=== PATIENT | female | born 1940 | race Asian ===

== ENCOUNTER 2016-07-06 10:26 | Outpatient (CLI) | payer MEDICARE | END 2016-07-06 10:27 | disposition home or self-care (01) | DX: Z12.31 Encounter for screening mammogram for malignant neoplasm of breast (principal) ==

== ENCOUNTER 2016-08-26 17:29 | Emergency (ER) | payer MEDICARE | END 2016-08-26 18:59 | disposition home or self-care (01) | DX: J06.9 Acute upper respiratory infection, unspecified (principal); I10 Essential (primary) hypertension; E11.9 Type 2 diabetes mellitus without complications; Z79.84 Long term (current) use of oral hypoglycemic drugs ==

== ENCOUNTER 2016-10-23 10:13 | Outpatient (CLI) | payer MEDICARE | END 2016-10-23 10:14 | disposition home or self-care (01) | DX: M85.89 Other specified disorders of bone density and structure, multiple sites (principal) ==

== ENCOUNTER 2016-12-29 11:54 | Emergency (ER) | payer MEDICARE ==
[2016-12-29 12:00] VITALS: BP 156/83
[2016-12-29 12:20] LABS: BILIRUBIN,URINE NEGATIVE (NEGATIVE); PH,URINE 6.5 PH (5.0-7.5)
[2016-12-29 12:23] LABS: UA w/ MICROSCOPIC CHARGE YES
[2016-12-29] MEDS ORDERED: PHENAZOPYRIDINE 100 MG TABLET PO STA (12:35)
[2016-12-29] MEDS ORDERED: NITROFURANTOIN MACRO 100 MG CAPSULE PO STA (12:35)
--- NOTE | 2016-12-29 12:37 | ED Physician Documentation ---
History of Present Illness - Stated complaint Stated Complaint: FEMALE - Chief complaint Chief Complaint: UTI - History obtained from History obtained from: Patient, Family () - History of Present Illness Timing: Yesterday (Urinary frequency and dysuria since yesterday without fevers , flank pain, or nausea.) Review of Systems Constitutional: denies: Fever, Chills GI: denies: Abdominal Pain, Nausea : reports: Dysuria, Frequency. 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: None : None HEENT: None Psych: None Musculoskeletal: None Derm: None - Past Surgical History Past Surgical History: Yes General: Appendectomy /COLOR CHECKER ROVING OR YARN: Hysterectomy - Present Medications Home Medications: Ambulatory Orders Medication Instructions Recorded Confirmed Atenolol [Tenormin] 50 mg PO DAILY 03/15/15 12/29/16 NIFEdipine [Procardia] 30 mg PO DAILY 03/15/15 12/29/16 Simvastatin [Zocor] 40 mg PO DAILY 03/15/15 12/29/16 metFORMIN [Glucophage] 500 mg PO TID 03/15/15 12/29/16 Nitrofurantoin Monohyd/M-Cryst 1 tab PO BID 5 Days 12/29/16 [Macrobid 100 mg Capsule] Phenazopyridine HCl [Pyridium] 200 mg PO TID #6 tablet 12/29/16 - Allergies Allergies/Adverse Reactions: Allergies Allergy/AdvReac Type Severity Reaction Status Date / Time aspirin AdvReac Intermediate Nausea Verified 10/28/15 16:40 lactose AdvReac Intermediate Nausea Verified 10/28/15 16:40 - Social History Does the pt smoke?: No Smoking Status: Never smoker Does the pt drink ETOH?: Yes Does the pt have substance abuse?: No - Immunizations Immunizations are current?: Yes - POLST Patient has POLST: No PD ED PE NORMAL - Vitals Vital signs reviewed: Yes - General General: Alert and oriented X 3, No acute distress - Abdomen Abdomen: Soft, Non tender - Back Back: No CVA TTP - Neuro Neuro: Alert and oriented X 3, Normal speech - Psych Psych: Normal mood, Normal affect Results - Vitals Vitals: Vital Signs - 24 hr 12/29/16 11:58 Temperature 36.7 C Heart Rate 69 Respiratory 16 Rate Blood Pressure 156/83 H O2 Saturation 96 Oxygen O2 Source Room air - Labs Labs: Laboratory Tests 12/29/16 12:07 Urine Color YELLOW Urine Clarity HAZY Urine pH 6.5 Ur Specific [place] 1.010 Urine Protein NEGATIVE Urine Glucose (UA) 250 H Urine Ketones NEGATIVE Urine Occult Blood MODERATE H Urine Nitrite NEGATIVE Urine Bilirubin NEGATIVE Urine Urobilinogen 0.2 (NORMAL) Ur Leukocyte Esterase MODERATE H Ur Microscopic Review INDICATED Urine Culture Comments Not Reportable Departure - Departure Disposition: Home, Self Care Clinical Impression: Cystitis Condition: Good Record reviewed to determine appropriate education?: Yes Instructions: ED UTI Cystitis Female Prescriptions: Nitrofurantoin Monohyd/M-Cryst [Macrobid 100 mg Capsule] 1 tab PO BID 5 Days Phenazopyridine HCl [Pyridium] 200 mg PO TID #6 tablet Comments: We will culture your urine, the results should be done in 48-72 hours. If an antibiotic change is necessary we will call you. Return if worse in the meantime, especially if you develop increasing flank pain, fevers, or cannot keep down the medication. Your blood pressure was elevated today on check into the emergency department. This does not mean that you have hypertension, it is a common phenomenon to come to the emergency department and have elevated blood pressure. I recommend that she see her primary care physician within the week to have it rechecked when you are feeling better.
[2016-12-29] MEDS ORDERED: NITROFURANTOIN MACRO 100 MG CAPSULE PO ONE (12:38)
[2016-12-29] MEDS ORDERED: PHENAZOPYRIDINE 100 MG TABLET PO ONE (12:38)
[2016-12-29 12:50] LABS: UR CULTURE IF IND INDICATED; WBC,URINE >25 /HPF (0-5)
== END 2016-12-29 12:54 | disposition home or self-care (01) ==
LOC: ED 11:54
DX: N30.90 Cystitis, unspecified without hematuria (principal); I10 Essential (primary) hypertension; E11.9 Type 2 diabetes mellitus without complications; Z79.84 Long term (current) use of oral hypoglycemic drugs; Z90.710 Acquired absence of both cervix and uterus
CPT/HCPCS: 81001; 87077; 87086; 87181; 99283; A9270; 81003

== ENCOUNTER 2017-01-28 11:49 | Outpatient (CLI) | payer MEDICARE ==
--- NOTE | 2017-01-28 13:46 | XRAY Report ---
TWO-VIEW LUMBAR SPINE: 01/28/2017 CLINICAL INDICATION: Back pain. FINDINGS: Frontal and lateral views of the lumbar spine demonstrate mild degenerative disc and facet disease. There is no evidence of fracture or subluxation. The bowel gas pattern appears normal. IMPRESSION: MILD DEGENERATIVE CHANGES. JOB #: [id number] EXT JOB #:[id number]
== END 2017-01-28 11:50 | disposition home or self-care (01) ==
LOC: DI 11:49
PROVIDERS: ATTEND Internal Medicine
DX: M51.36 Other intervertebral disc degeneration, lumbar region (principal); M47.896 Other spondylosis, lumbar region
CPT/HCPCS: 72100

== ENCOUNTER 2017-06-10 12:28 | Outpatient (CLI) | payer MEDICARE ==
--- NOTE | 2017-06-10 15:01 | CT Report ---
EXAM: CT HEAD EXAM DATE: 06/10/2017 12:47 PM. CLINICAL HISTORY: HEADACHE. COMPARISON: None. TECHNIQUE: Multiaxial CT images were obtained from the foramen magnum to the vertex. Reformats: Coron al. IV contrast: None. In accordance with CT protocol optimization, one or more of the following dose reduction techniques w ere utilized for this exam: automated exposure control, adjustment of mA and/or KV based on patient s ize, or use of iterative reconstructive technique. FINDINGS: Parenchyma: No intraparenchymal hemorrhage. No evidence of mass, midline shift, or CT findings of acu te infarction. Old bilateral basal ganglia infarcts. Old bilateral ayala radiata Rodriguez-white differen tiation is distinct. Moderate supratentorial periventricular white matter changes Extraaxial Spaces: Normal for age. No subdural or epidural collections identified. Ventricles: Normal in size and position. Sinuses and Orbits: Imaged paranasal sinuses, orbits, and mastoids show no significant abnormality. Bones: No evidence of fracture or calvarial defect. Other: None. IMPRESSION: 1. No acute bleed, no acute infarcts. 2. Old bilateral basal ganglia, ayala radiata infarcts. 3. Moderate supratentorial periventricular white matter changes [facility] Referring Provider Line: [phone] SITE ID: [id number]
--- NOTE | 2017-06-10 15:06 | CT Report ---
EXAM: CT SINUS EXAM DATE: 06/10/2017 12:47 PM. HISTORY: Headache COMPARISONS: None. TECHNIQUE: Routine multi-axial CT imaging performed through the sinuses. Iodinated IV contrast: None. Reconstructions: Coronal. In accordance with CT protocol optimization, one or more of the following dose reduction techniques w ere utilized for this exam: automated exposure control, adjustment of mA and/or KV based on patient s ize, or use of iterative reconstructive technique. FINDINGS: RIGHT: Postop partial ethmoidectomy, ostiomeatal unit resection, maxillary antrostomy. Frontal: Normal. Ethmoid: Mild mucosal thickening Maxillary: Mild mucosal thickening 0.9 cm retention cysts/polyp. Antrostomy patent Sphenoid: Normal. Drainage Pathways: The frontal recess and sphenoethmoidal recess are patent and normal. LEFT: Postop partial ethmoidectomy, ostiomeatal unit resection, maxillary antrostomy. Frontal: Mild mucosal thickening. Ethmoid: Mild mucosal thickening. Maxillary: Mild mucosal thickening. Antrostomy patent. Sphenoid: Normal. Drainage Pathways: The frontal recess opacified. Sphenoethmoidal recess patent and normal. Nasal Cavity: Normal. No mass or significant anatomic abnormality evident. Osseous Structures: Unremarkable. Orbits: Unremarkable. Other: None. IMPRESSION: 1. Mild Bilateral ethmoid and maxillary sinus disease. Mild Left frontal sinus disease. Detailed abov e [facility] Referring Provider Line: [phone] SITE ID: [id number]
== END 2017-06-10 12:29 | disposition home or self-care (01) ==
LOC: DI 12:28
PROVIDERS: ATTEND Internal Medicine
DX: R51 Headache (principal); J32.8 Other chronic sinusitis
CPT/HCPCS: 70450; 70486

== ENCOUNTER 2017-07-24 11:39 | Outpatient (CLI) | payer MEDICARE ==
--- NOTE | 2017-07-26 09:41 | Mammography Report ---
DATE OF SERVICE: 07/24/2017 DIGITAL SCREENING MAMMOGRAM: 07/24/2017 CLINICAL INDICATION: A 76-year-old, for screening. COMPARISON: 07/2016, 05/2011, 05/2008. TECHNIQUE: Routine CC and MLO projections were obtained of the breasts. FINDINGS: The breasts demonstrate fatty replacement bilaterally. Punctate, typically benign calcifications are present. No suspicious masses, clustered microcalcifications or regions of architectural distortion are identified. IMPRESSION: BENIGN FINDINGS. RECOMMENDATION: ROUTINE ANNUAL SCREENING UNLESS OTHERWISE CLINICALLY INDICATED. BIRADS CATEGORY 2-BENIGN FINDINGS. STANDARD QUALIFYING STATEMENTS: 1. This examination was reviewed with the aid of Computer-Aided Detection (CAD). 2. A negative or benign imaging report should not delay biopsy if clinically suspicious findings are present. Consider surgical consultation if warranted. More than 5% of cancers are not identified by imaging. 3. Dense breasts may obscure an underlying neoplasm. TD: 07/26/2017 10:39
== END 2017-07-24 11:40 | disposition home or self-care (01) ==
LOC: DI 11:39
PROVIDERS: ATTEND Internal Medicine
DX: Z12.31 Encounter for screening mammogram for malignant neoplasm of breast (principal)
CPT/HCPCS: 77067

== ENCOUNTER 2018-03-23 11:01 | Emergency (ER) | payer MEDICARE ==
[2018-03-23 11:50] LABS: BILIRUBIN,URINE NEGATIVE (NEGATIVE); GLUCOSE, URINE (UA) 500 mg/dL (NEGATIVE); KETONES,URINE (UA) NEGATIVE (NEGATIVE); LEUKOCYTE ESTERASE, URINE SMALL (NEGATIVE); NITRITE,URINE NEGATIVE (NEGATIVE); OCCULT BLOOD,URINE NEGATIVE (NEGATIVE); PROTEIN,URINE NEGATIVE (NEGATIVE); UROBILINOGEN,URINE 0.2 (NORMAL) E.U./dL (NORMAL)
[2018-03-23 11:51] LABS: CLARITY,URINE HAZY (CLEAR)
[2018-03-23 11:58] LABS: BACTERIA,URINE Rare /HPF (None Seen); RBC,URINE 0-5 /HPF (0-5); SQUAMOUS EPITHELIAL CELL,UR RARE Squamous (<= Few)
--- NOTE | 2018-03-23 12:35 | ED Physician Documentation ---
History of Present Illness - Stated complaint Stated Complaint: COUGH/RUNNY NOSE - Chief complaint Chief Complaint: Heent - Additonal information Additional information: hx from pt recent cough congestion now L maxillary pressure and purulent dc from eyes and nose concern for sinus infection Review of Systems Constitutional: denies: Fever Nose: reports: Congestion, Sinus pressure / pain Respiratory: reports: Cough Immunocompromised: denies: Immunocompromised PD PAST MEDICAL HISTORY - Past Medical History Past Medical History: Yes Cardiovascular: Hypertension Respiratory: None Endocrine/Autoimmune: Type 2 diabetes GI: None 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 : None HEENT: None Psych: None Musculoskeletal: None Derm: None - Past Surgical History Past Surgical History: Yes General: 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: Hysterectomy - Present Medications Home Medications: Ambulatory Orders Medication Instructions Recorded Confirmed Atenolol [Tenormin] 50 mg PO DAILY 03/15/15 03/23/18 NIFEdipine [Procardia] 30 mg PO DAILY 03/15/15 03/23/18 Simvastatin [Zocor] 40 mg PO DAILY 03/15/15 03/23/18 metFORMIN [Glucophage] 500 mg PO TID 03/15/15 03/23/18 Amox/Clav 875/125 [Augmentin] 1 each PO Q12H #14 tablet 03/23/18 Fluticasone [Flonase] 1 sprays HALEY BID PRN #1 bottle 03/23/18 Pseudoephedrine [Sudafed] 30 mg PO Q6H PRN #20 tablet 03/23/18 - Allergies Allergies/Adverse Reactions: Allergies Allergy/AdvReac Type Severity Reaction Status Date / Time aspirin AdvReac Intermediate Nausea Verified 10/28/15 16:40 lactose AdvReac Intermediate Nausea Verified 10/28/15 16:40 - Social History Does the pt smoke?: No Smoking Status: Never smoker Does the pt drink ETOH?: Yes Does the pt have substance abuse?: No - Immunizations Immunizations are current?: Yes - POLST Patient has POLST: No PD ED PE NORMAL - Vitals Vital signs reviewed: Yes - HEENT HEENT: PERRL, Pharynx benign, Other (L maxillary sinus TTP and swelling, nasal turbinate swelling) - Neck Neck: Supple, no meningeal sign - Cardiac Cardiac: RRR - Respiratory Respiratory: No respiratory distress - Abdomen Abdomen: Soft, Non tender Results - Vitals Vitals: Vital Signs - 24 hr 03/23/18 11:16 Temperature 36.5 C Heart Rate 78 Respiratory 18 Rate Blood Pressure 195/74 H O2 Saturation 97 Oxygen O2 Source Room air - Labs Labs: Laboratory Tests 03/23/18 11:42 Urine Color YELLOW Urine Clarity HAZY Urine pH 6.0 Ur Specific [place] 1.015 Urine Protein NEGATIVE Urine Glucose (UA) 500 H Urine Ketones NEGATIVE Urine Occult Blood NEGATIVE Urine Nitrite NEGATIVE Urine Bilirubin NEGATIVE Urine Urobilinogen 0.2 (NORMAL) Ur Leukocyte Esterase SMALL H Urine RBC 0-5 Urine WBC 11-25 H Ur Squamous Epith Cells RARE Squamous Urine Bacteria Rare Ur Microscopic Review INDICATED Urine Culture Comments INDICATED PD MEDICAL DECISION MAKING - ED course ED course: given focal maxillary swelling and purlent dc will tx with ab - Sepsis Event Vital Signs: Vital Signs - 24 hr 03/23/18 11:16 Temperature 36.5 C Heart Rate 78 Respiratory 18 Rate Blood Pressure 195/74 H O2 Saturation 97 Oxygen O2 Source Room air Departure - Departure Disposition: 01 Home, Self Care Clinical Impression: Maxillary sinusitis Qualifiers: Chronicity: acute Recurrence: non-recurrent Qualified Code(s): J01.00 - Acute maxillary sinusitis, unspecified Condition: Good Instructions: ED Sinusitis Abx Tx Follow-Up: Vania Gómez MD [Primary Care Provider] - Prescriptions: Amox/Clav 875/125 [Augmentin] 1 each PO Q12H #14 tablet Fluticasone [Flonase] 1 sprays HALEY BID PRN #1 bottle PRN Reason: allergies Pseudoephedrine [Sudafed] 30 mg PO Q6H PRN #20 tablet PRN Reason: congestion Comments: Recommend that you try a sinus irrigation system as well And please get your blood pressure rechecked
[2018-03-23 13:02] VITALS: BP 195/82
== END 2018-03-23 12:57 | disposition home or self-care (01) ==
LOC: ED 11:01
DX: I10 Essential (primary) hypertension (principal); E11.9 Type 2 diabetes mellitus without complications; J01.00 Acute maxillary sinusitis, unspecified
CPT/HCPCS: 81001; 81003; 87086; 99282; 99283

== ENCOUNTER 2018-11-03 11:37 | Emergency (ER) | payer MEDICARE ==
[2018-11-03] MEDS ORDERED: ACETAMINOPHEN/CODEINE 300 MG/30 MG TABLET PO STA (11:58)
--- NOTE | 2018-11-03 11:58 | ED Physician Documentation ---
PD HPI UPPER EXT INJURY - Stated complaint Stated Complaint: GLF/R ARM INJ - Chief complaint Chief Complaint: Ext Problem - History obtained from History obtained from: Patient - History of Present Illness Location: Left, Wrist Type of injury: Fall Where injury occurred: Home Timing - onset: How many hours ago (2) Timing - duration: Hours (2) Timing - details: Abrupt onset Pain level max: 7 Pain level now: 7 Improved by: Rest, Immobilization Worsened by: Moving, Palpating Associated symptoms: No: Weakness, Numbness, Tingling Contributing factors: No: Anticoagulated Recently seen: Not recently seen Review of Systems Neurologic: denies: Focal weakness, Numbness, Headache, LOC PD PAST MEDICAL HISTORY - Past Medical History Cardiovascular: Hypertension Respiratory: None Endocrine/Autoimmune: Type 2 diabetes GI: None CADET 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 : None HEENT: None Psych: None Musculoskeletal: None Derm: None - Past Surgical History Past Surgical History: Yes General: Appendectomy /CADET DECK: Hysterectomy - Present Medications Home Medications: Ambulatory Orders Medication Instructions Recorded Confirmed Atenolol [Tenormin] 50 mg PO DAILY 03/15/15 03/23/18 NIFEdipine [Procardia] 30 mg PO DAILY 03/15/15 03/23/18 Simvastatin [Zocor] 40 mg PO DAILY 03/15/15 03/23/18 metFORMIN [Glucophage] 500 mg PO TID 03/15/15 03/23/18 Amox/Clav 875/125 [Augmentin] 1 each PO Q12H #14 tablet 03/23/18 Fluticasone [Flonase] 1 sprays HALEY BID PRN #1 bottle 03/23/18 Pseudoephedrine [Sudafed] 30 mg PO Q6H PRN #20 tablet 03/23/18 Acetaminophen/Cod 300/30 [Tylenol 1 tab PO Q4-6H PRN #14 tablet 11/03/18 #3] - Allergies Allergies/Adverse Reactions: Allergies Allergy/AdvReac Type Severity Reaction Status Date / Time aspirin AdvReac Intermediate Nausea Verified 11/03/18 11:43 lactose AdvReac Intermediate Nausea Verified 11/03/18 11:43 - Social History Does the pt smoke?: No Smoking Status: Never smoker Does the pt drink ETOH?: Yes Does the pt have substance abuse?: No - Immunizations Immunizations are current?: Yes - POLST Patient has POLST: No PD ED PE NORMAL - Vitals Vital signs reviewed: Yes - General General: Alert and oriented X 3, No acute distress - HEENT HEENT: Moist mucous membranes - Derm Derm: Warm and dry - Extremities Extremities: Other (R wrist diffusely TTP over the distal R wrist with swelling. NVI.) - Neuro Neuro: Alert and oriented X 3 Results - Vitals Vitals: Vital Signs - 24 hr 11/03/18 11/03/18 11:41 12:58 Temperature 36.9 C 36.3 C L Heart Rate 65 56 L Respiratory 14 16 Rate Blood Pressure 185/79 H 163/74 H O2 Saturation 98 96 Oxygen O2 Source Room air - Rads (name of study) R wrist xray Radiology: Prelim report reviewed, EMP read contemporaneously, See rad report (Impacted distal radial fracture. ) Procedures - Splint (location) R wrist Splint applied by: Physician, Tech Type of splint: Fiberglass, Short arm, Volar cock up Other: Patient tolerated well, No complications, Neurovascular intact, Sling provided PD MEDICAL DECISION MAKING - ED course Complexity details: reviewed results, re-evaluated patient, considered differential, d/w patient, d/w family ED course: 78-year-old female with an impacted right distal radius fracture. Placed in a volar splint and sling. Will follow up with orthopedics. Patient counseled regarding signs and symptoms for which I believe and urgent re-evaluation would be necessary. Patient with good understanding of and agreement to plan and is comfortable going home at this time This document was made in part using voice recognition software. While efforts are made to proofread this document, sound alike and grammatical errors may occur. Neurovascularly intact after sling application Departure - Departure Disposition: 01 Home, Self Care Clinical Impression: Distal radius fracture, right Qualifiers: Encounter type: initial encounter Fracture type: closed Fracture morphology: unspecified fracture morphology Qualified Code(s): S52.501A - Unspecified fracture of the lower end of right radius, initial encounter for closed fracture Condition: Good Instructions: ED Fx Upper Ext Follow-Up: Vania Gómez MD [Primary Care Provider] - Within 1 week [facility] [Provider Group] - Within 1 week Prescriptions: Acetaminophen/Cod 300/30 [Tylenol #3] 1 tab PO Q4-6H PRN #14 tablet PRN Reason: pain Comments: Wear the splint until released by orthopedics. Follow-up with orthopedics within 1 week. Return if you worsen. Discharge Date/Time: 11/03/18 13:00
--- NOTE | 2018-11-03 12:22 | XRAY Report ---
Reason: Trauma Procedure Date: 11/03/2018 Accession Number: [id number] / [id number] Procedure: XR - Wrist 4 View RT CPT Code: FULL RESULT: EXAM: RIGHT WRIST RADIOGRAPHY EXAM DATE: 11/03/2018 12:08 PM. CLINICAL HISTORY: Fall onto the side. COMPARISON: None. TECHNIQUE: 4 views. FINDINGS: There is an impacted distal radius fracture without significant angulation. Micro-osteopenic. No dislocation is detected. IMPRESSION: Impacted distal radial fracture. [facility] The call report notification system was initiated by Dr. Mayo Morgan at 12:21 PM on 11/03/2018. The above call report findings were discussed with Dr. Hernandez by Dr. Mayo Mogran at 12:23 PM on 11/03/2018.
[2018-11-03 12:59] VITALS: BP 163/74
== END 2018-11-03 13:00 | disposition home or self-care (01) ==
LOC: ED 11:37
DX: S52.501A Unspecified fracture of the lower end of right radius, initial encounter for closed fracture (principal); W01.0XXA Fall on same level from slipping, tripping and stumbling without subsequent striking against object, initial encounter; Y92.009 Unspecified place in unspecified non-institutional (private) residence as the place of occurrence of the external cause; I10 Essential (primary) hypertension; E11.9 Type 2 diabetes mellitus without complications; Z79.84 Long term (current) use of oral hypoglycemic drugs
CPT/HCPCS: 29125; 73110; 99283; A9270

== ENCOUNTER 2019-08-14 06:58 | Outpatient (CLI) | payer MEDICARE | END 2019-08-14 06:59 | disposition critical access hospital (66) | LOC: EMS 06:58 | PROVIDERS: ATTEND Surgery | DX: R29.810 Facial weakness (principal); R53.1 Weakness; R47.9 Unspecified speech disturbances | CPT/HCPCS: A0425; A0429 ==

== ENCOUNTER 2019-08-14 07:10 | Inpatient (IN) | payer MEDICARE ==
--- NOTE | 2019-08-14 07:21 | ED Physician Documentation ---
PD HPI FOCAL NEURO - Stated complaint Stated Complaint: STROKE - Chief complaint Chief Complaint: Neuro - History obtained from History obtained from: Patient, Family - History of Present Illness Weakness: Face, Arm, Hand, Leg, Foot, Right Associated symptoms: No: Nausea / vomiting Contributing factors: negative: Anticoagulated Baseline status: positive: A&OX3, ambulatory, indep Similar symptoms before: Has not had sx before Recently seen: Not recently seen - Additional information Additional information: 79-year-old female brought in by ambulance this morning for a aphasia, right- sided facial droop, right arm and right leg weakness. They state that last seen normal was last night. did state that he heard her moving around this morning approximately an hour ago. They were called when he went to check on her and found her unable to speak and without the use of her right arm and right leg. They state that this is never occurred before. Does have significant hypertension in her history. She is on 4 antihypertensive medications. Unknown if she took them this morning or not as she is not speaking currently. The medics state that her weakness appears to be improving fairly rapidly while en route to the hospital. 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 : None HEENT: None Psych: None Musculoskeletal: None Derm: None - Past Surgical History Past Surgical History: Yes General: Appendectomy /HORTICULTURE INSTRUCTOR: Hysterectomy - Present Medications Home Medications: Ambulatory Orders Medication Instructions Recorded Confirmed Atenolol [Tenormin] 50 mg PO DAILY 03/15/15 03/23/18 NIFEdipine [Procardia] 30 mg PO DAILY 03/15/15 03/23/18 Simvastatin [Zocor] 40 mg PO DAILY 03/15/15 03/23/18 metFORMIN [Glucophage] 500 mg PO TID 03/15/15 03/23/18 Amox/Clav 875/125 [Augmentin] 1 each PO Q12H #14 tablet 03/23/18 Fluticasone [Flonase] 1 sprays HALEY BID PRN #1 bottle 03/23/18 Pseudoephedrine [Sudafed] 30 mg PO Q6H PRN #20 tablet 03/23/18 Acetaminophen/Cod 300/30 [Tylenol 1 tab PO Q4-6H PRN #14 tablet 11/03/18 #3] - Allergies Allergies/Adverse Reactions: Allergies Allergy/AdvReac Type Severity Reaction Status Date / Time aspirin AdvReac Intermediate Nausea Verified 11/03/18 11:43 lactose AdvReac Intermediate Nausea Verified 11/03/18 11:43 - Living Situation Living Situation: reports: With family Living Arrangement: reports: At home - Social History Does the pt smoke?: No Smoking Status: Never smoker Does the pt drink ETOH?: Yes Does the pt have substance abuse?: No - Family History Family history: reports: Non contributory - Immunizations Immunizations are current?: Yes - POLST Patient has POLST: No PD ED PE NORMAL - Vitals Vital signs reviewed: Yes - General General: No acute distress, Well developed/nourished - HEENT HEENT: Atraumatic, PERRL, EOMI, Ears normal, Moist mucous membranes, Pharynx benign - Neck Neck: Supple, no meningeal sign - Cardiac Cardiac: RRR, Strong equal pulses - Respiratory Respiratory: No respiratory distress, Clear bilaterally - Abdomen Abdomen: Soft, Non tender, Non distended - Derm Derm: Warm and dry, No rash - Extremities Extremities: No edema - Neuro 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, No sensory deficit, Other (Difficulty speaking, Expressive aphasia) Eye Opening: Spontaneous NIHSS - Time Time: 07:17 - Level of Consciousness Level of consciousness: (0) Alert, Keenly responsive LOC Questions: (2) Answers neither correct LOC Commands: (0) Performs both correctly - Gaze Best Gaze: (0) Normal - Visual Visual: (0) No loss - Facial Palsy Facial Palsy: (1) Minor paralysis - Motor Arms (both separate) Motor Arm (right): (1) Drift Motor Arm (left): (0) No drift - Motor Legs (both separate) Motor Leg (right): (1) Drift Motor Leg (left): (0) No drift - Limb Ataxia Limb Ataxia: (0) Absent - Sensory Sensory: (0) Normal - Best Language Best Language: (2) Severe aphasia - Dysarthria Dysarthria: (0) Normal - Extinction and Inattention (formally neg Extinction and inattention: (0) No abnormality - Total Score/Results Total Score/Result: 7 Results - Vitals Vitals: Vital Signs - 24 hr 08/14/19 08/14/19 08/14/19 07:15 08:02 08:15 Temperature 36.9 C Heart Rate 76 81 Respiratory 16 18 20 Rate Blood Pressure 233/103 H 234/81 H 243/71 H O2 Saturation 96 95 08/14/19 08/14/19 08:24 08:31 Temperature Heart Rate 68 71 Respiratory 18 18 Rate Blood Pressure 216/74 H 221/79 H O2 Saturation 96 96 Oxygen O2 Source Room air - EKG (time done) 0730 Rate: Rate (enter#) (82) Rhythm: NSR Magnet: Normal Intervals: Normal ND, Prolonged QT QRS: Normal, LVH Ischemia: ST elevation c/w repol - Labs Labs: Laboratory Tests 08/14/19 08/14/19 08/14/19 07:35 07:35 07:35 WBC 7.4 RBC 4.83 Hgb 14.5 Hct 44.3 MCV 91.7 MCH 30.0 MCHC 32.7 RDW 12.5 Plt Count 159 MPV 10.2 Neut # (Auto) 4.2 Lymph # (Auto) 2.5 [place] # (Auto) 0.6 Eos # (Auto) 0.2 Baso # (Auto) 0.0 Absolute Nucleated RBC 0.00 Nucleated RBC % 0.0 PT 11.9 INR 1.0 APTT 31.5 Sodium 137 Potassium 3.9 Chloride 102 Carbon Dioxide 24 Anion Gap 11.0 BUN 17 Creatinine 1.1 H Estimated GFR (MDRD) 48 L Glucose 160 H Calcium 9.2 Total Bilirubin 0.8 AST 24 ALT 20 Alkaline Phosphatase 60 Total Protein 7.3 Albumin 4.3 Globulin 3.0 Albumin/Globulin Ratio 1.4 Lipase 37 Urine Color Urine Clarity Urine pH Ur Specific [place] Urine Protein Urine Glucose (UA) Urine Ketones Urine Occult Blood Urine Nitrite Urine Bilirubin Urine Urobilinogen Ur Leukocyte Esterase Urine RBC Urine WBC Ur Squamous Epith Cells Urine Bacteria Ur Microscopic Review Urine Culture Comments 08/14/19 08:00 WBC RBC Hgb Hct MCV MCH MCHC RDW Plt Count MPV Neut # (Auto) Lymph # (Auto) [place] # (Auto) Eos # (Auto) Baso # (Auto) Absolute Nucleated RBC Nucleated RBC % PT INR APTT Sodium Potassium Chloride Carbon Dioxide Anion Gap BUN Creatinine Estimated GFR (MDRD) Glucose Calcium Total Bilirubin AST ALT Alkaline Phosphatase Total Protein Albumin Globulin Albumin/Globulin Ratio Lipase Urine Color LIGHT YELLOW Urine Clarity CLEAR Urine pH 7.5 Ur Specific [place] 1.020 Urine Protein 30 H Urine Glucose (UA) NEGATIVE Urine Ketones NEGATIVE Urine Occult Blood NEGATIVE Urine Nitrite NEGATIVE Urine Bilirubin NEGATIVE Urine Urobilinogen 0.2 (NORMAL) Ur Leukocyte Esterase NEGATIVE Urine RBC 0-5 Urine WBC 0-3 Ur Squamous Epith Cells FEW Squamous Urine Bacteria Rare Ur Microscopic Review INDICATED Urine Culture Comments NOT INDICATED - Rads (name of study) head CT Radiology: Prelim report reviewed, EMP read contemporaneously, See rad report (No acute intracranial abnormality) PD MEDICAL DECISION MAKING - ED course Complexity details: reviewed results, re-evaluated patient, considered differential, d/w patient, d/w family, d/w product/industry consultant ED course: 79-year-old female with significant hypertension and diabetes. She is on 5 antihypertensive medications at home. Unclear if she took these today or not. Was treated with labetalol here after negative head CT. Her weakness is rapidly improving, initially was completely a phasic, now will say yes or no. She was also given rectal aspirin after the negative head CT. Concern for very poorly controlled blood pressure along with stroke symptoms, will need further work-up with the hospitalist. Discussed the case with Dr. Ortiz, hospitalist who accepts. She is not a TPA candidate. This document was made in part using voice recognition software. While efforts a re made to proofread this document, sound alike and grammatical errors may occur. - TPA CVA checklist Inclusion crititeria: positive: Sig neuro deficit Absolute contraindications: positive: SBP>185 DBP>110 s/p tx Relative contraindications: positive: Rapid improvement Absolute contraindications if 3-4.5 hr: positive: Age > 80 Departure - Departure Disposition: 66 [facility] DC/Xfer Clinical Impression: Hypertension Qualifiers: Hypertension type: unspecified Qualified Code(s): I10 - Essential (primary) hypertension Stroke Qualifiers: CVA mechanism: unspecified Qualified Code(s): I63.9 - Cerebral infarction, unspecified Condition: Stable
--- NOTE | 2019-08-14 07:39 | CT Report ---
Reason: Neuro deficit, acute, stroke suspected Procedure Date: 08/14/2019 Accession Number: [id number] / [id number] Procedure: CT - Head W/O Stroke Protocol CPT Code: Addended Final Report FULL RESULT: EXAM: CT HEAD EXAM DATE: 08/14/2019 07:28 AM. CLINICAL HISTORY: Neuro deficit, acute, stroke suspected. Acute aphasia and right extremity weakness. COMPARISON: HEAD W/O 06/10/2017 12:39 PM. TECHNIQUE: Multiaxial CT images were obtained from the foramen magnum to the vertex. Reformats: Sagittal and coronal. IV contrast: None. In accordance with CT protocol optimization, one or more of the following dose reduction techniques were utilized for this exam: automated exposure control, adjustment of mA and/or KV based on patient size, or use of iterative reconstructive technique. FINDINGS: Diffuse atrophy. Multiple old lacunar infarcts bilaterally. Amorphous white matter hypoattenuation likely from microangiopathy. No hydrocephalus, mass-effect or midline shift. No evidence for acute cortical infarct or acute hemorrhage. Cavernous carotid calcifications. Findings of prior sinus surgery. Residual paranasal sinus mucosal thickening. New prominent fluid opacity of the left sphenoid sinus. No acute calvarial defect. IMPRESSION: 1. No CT evidence of acute intracranial abnormality. 2. Brain atrophy and findings of chronic ischemic brain disease. 3. Sinusitis. RADIA The critical test notification system was initiated by Dr. Marck Dolan at 07:37 AM on 08/14/2019. The above critical test findings were discussed with Oswald Hernandez by Dr. Marck Dolan at 07:38 AM on 08/14/2019. ADDENDUM: 08/14/19 14:59 Aspects 10, which might be inferred from absence of CT findings of acute cortical infarct, as reported.
[2019-08-14 07:55] LABS: ALBUMIN 4.3 g/dL (3.2-5.5); ALBUMIN/GLOBULIN RATIO 1.4 (1.0-2.2); BILIRUBIN,TOTAL 0.8 mg/dL (0.2-1.0); CALCIUM 9.2 mg/dL (8.5-10.3); CREATININE 1.1 mg/dL (0.4-1.0); TOTAL PROTEIN 7.3 g/dL (6.7-8.2)
[2019-08-14] MEDS ORDERED: LABETALOL 5 MG/1 ML 20 ML MDV IVP STA ×2 (08:02→08:38)
[2019-08-14 08:10] LABS: BILIRUBIN,URINE NEGATIVE (NEGATIVE); GLUCOSE, URINE (UA) NEGATIVE (NEGATIVE); KETONES,URINE (UA) NEGATIVE (NEGATIVE); LEUKOCYTE ESTERASE, URINE NEGATIVE (NEGATIVE); NITRITE,URINE NEGATIVE (NEGATIVE); OCCULT BLOOD,URINE NEGATIVE (NEGATIVE); PH,URINE 7.5 PH (5.0-7.5); PROTEIN,URINE 30 mg/dL (NEGATIVE); UROBILINOGEN,URINE 0.2 (NORMAL) E.U./dL (NORMAL)
[2019-08-14 08:10] LABS: BASOPHILS % (AUTO) 0.3 %; EOSINOPHILS # (AUTO) 0.2 10^3/uL (0.0-0.7); HGB - HEMOGLOBIN 14.5 g/dL (12.0-16.0); LYMPHOCYTES # (AUTO) 2.5 10^3/uL (1.5-3.5); LYMPHOCYTES % (AUTO) 33.9 %; MEAN CORPUSCULAR HGB CONC 32.7 g/dL (32.0-36.0); MEAN CORPUSCULAR VOLUME 91.7 fL (81.0-99.0); MEAN PLATELET VOLUME 10.2 fL (7.9-10.8); MONOCYTES # (AUTO) 0.6 10^3/uL (0.0-1.0); MONOCYTES % (AUTO) 7.4 %; NEUTROPHILS # (AUTO) 4.2 10^3/uL (1.5-6.6); NEUTROPHILS % (AUTO) 56.1 %; PLT - PLATELET COUNT 159 10^3/uL (130-450); RED BLOOD COUNT 4.83 10^6/uL (4.20-5.40); RED CELL DISTRIBUTION WIDTH 12.5 % (12.0-15.0); WHITE BLOOD COUNT 7.4 x10^3/uL (4.8-10.8)
[2019-08-14 08:13] LABS: CLARITY,URINE CLEAR (CLEAR)
[2019-08-14 08:19] LABS: PT - PROTHROMBIN TIME 11.9 secs (9.9-12.6)
[2019-08-14 08:24] LABS: BACTERIA,URINE Rare /HPF (None Seen); RBC,URINE 0-5 /HPF (0-5); SQUAMOUS EPITHELIAL CELL,UR FEW Squamous (<= Few)
[2019-08-14 08:26] LABS: PARTIAL THROMBOPLASTIN TIME 31.5 secs (24.9-33.3)
[2019-08-14] MEDS ORDERED: ASPIRIN 300 MG SUPP PR STA (08:38)
[2019-08-14] MEDS ORDERED: SODIUM CHLORIDE FLUSH 0.9% 10 ML SYRINGE IVP PRN (08:47)
[2019-08-14] MEDS ORDERED: SODIUM CHLORIDE FLUSH 0.9% 10 ML SYRINGE IVP SCH (09:00)
[2019-08-14 09:47] LABS: CHOL/HDL RATIO 4.6 (<4.4); CHOLESTEROL 222 mg/dL; HDL CHOLESTEROL 48 mg/dL; LDL CHOLESTEROL,CALCULATED 143 mg/dL; VLDL CHOLESTEROL 31 mg/dL
[2019-08-14] MEDS ORDERED: ONDANSETRON 4 MG/2 ML VIAL IVP PRN (10:23)
[2019-08-14 10:59] LABS: HEMOGLOBIN A1C 0.78 g/dL; HEMOGLOBIN A1C % 6.9 % (4.6-6.2)
--- NOTE | 2019-08-14 11:05 | PHARMACY PROGRESS NOTE ---
- Best Possible Medication History Admit Date and Time: 08/14/19 0842 Processed by: Pharmacy Medication History completed: In progress Patient Interview: Pt unable to participate Secondary Source(s): Physician records, Pharmacy records, Insurance records Currently waiting to speak to patient. Patient has history of multiple hypertensive agents but PCP and insurance history only has record of nifedipine. There is history of atenolol, however, that has not been filled since March 2019 and the prescribing physician (Dalia) no longer lists it as one of her active medications. As the person ultimately responsible for medication therapy, providers are able to order a medication from an existing home medication list in [facility] via the "Reconcile Routine" prior to Confirmation of that medication by community support professional. Such practice is discouraged except when the physician, in their clinical judgment, deems that a medical need exists for a medication without regard to previous use.
--- NOTE | 2019-08-14 11:46 | XRAY Report ---
Reason: HTN Procedure Date: 08/14/2019 Accession Number: [id number] / [id number] Procedure: XR - Chest 1 View X-Ray CPT Code: 54623 Final Report FULL RESULT: EXAM: CHEST RADIOGRAPHY EXAM DATE: 08/14/2019 11:35 AM. CLINICAL HISTORY: HTN. CVA. COMPARISON: CHEST 2 VIEW PA/LAT 08/26/2016 5:57 PM. TECHNIQUE: Upright AP view. The patient is mildly rotated toward the left. FINDINGS: Lungs/Pleura: No focal opacities evident. No pleural effusion. No pneumothorax. Mediastinum: Within exam limitations, the cardiomediastinal contour is normal. Mild aortic arch calcification. Other: Right humeral neck and cerclage wires and right scapular coracoid process lag screw, as before. IMPRESSION: No evidence of active cardiopulmonary disease. RADIA
[2019-08-14] MEDS: METOPROLOL 5 MG/5 ML VIAL IVP SCH ×2 (12:21→13:08)
[2019-08-14] MEDS: FAMOTIDINE 20 MG/2 ML VIAL IVP SCH ×2 (12:22→13:10)
[2019-08-14] MEDS ORDERED: IOVERSOL 320 100 ML VIAL IVP ONE ×2 (13:09→13:25)
[2019-08-14] MEDS ORDERED: NITROGLYCERIN 2% PASTE TOP SCH (14:00)
--- NOTE | 2019-08-14 14:08 | CT Report ---
Reason: Stuttering acute stroke Procedure Date: 08/14/2019 Accession Number: [id number] / [id number] Procedure: CT - ANGIO HEAD W/WO CPT Code: Final Report FULL RESULT: CT ANGIOGRAM HEAD AND POSTCONTRAST HEAD CT INDICATION: 78-year-old female. Stuttering, acute stroke. TECHNIQUE: CT Angiogram Head 80 cc of Optiray 320 contrast were injected at a rapid rate through a large-bore, antecubital intravenous catheter. The head was scanned helically during arterial phase. The data was reconstructed into 0.5 mm axial images. In addition, MIP reconstructions have been generated in the coronal and sagittal planes to allow better assessment of the intracranial arteries. Postcontrast Head CT Sequential 5 mm axial images were obtained through the brain. In accordance with CT protocol optimization, one or more of the following dose reduction techniques were utilized for this exam: automated exposure control, adjustment of mA and/or KV based on patient size, or use of iterative reconstructive technique. COMPARISON: None. FINDINGS: CT Angiogram Head Anterior circulation: Calcified atherosclerotic plaque is identified scattered throughout the carotid siphons bilaterally. Evaluation for associated stenosis is difficult, particularly given the marked tortuosity of the siphons. However, no obvious, hemodynamically significant ICA narrowing is identified. Certainly no high-grade stenosis is seen. The A1 segments of the anterior cerebral arteries are essentially codominant. There is segmental narrowing in the proximal A1 segment for the right anterior cerebral artery. The lumen measures roughly 1 mm, compared to 1.5 mm more distally, consistent with 33.3% NASCET type narrowing. No anterior communicating artery is identified. There appears to be good filling of A2 and distal JAY branches bilaterally. No obvious JAY branch occlusion is identified. The M1 segment for the left MCA is widely patent. There is a left MCA trifurcation. There is occlusion of the middle branch roughly 5-6 mm distal to its origin (see images 56 and 57 of series #5). There are tandem stenoses in the proximal M1 segment of the right MCA. There is mild narrowing at the origin (image 64 of series #5). In addition, there is short segment focal stenosis, roughly 3.5 mm more distally (image 62 of series #5). The lumen is reduced to about 1 mm on coronal reformations, compared to about 2.4 mm more distally, consistent with a close to 60% NASCET-type stenosis. In addition, there is mild, multifocal irregularity in the distal third of the M1 segment. There is filling of 3 M2 branches at the trifurcation. However, there appears to be relatively severe stenosis at the origin of the third branch, the main trunk for the posterior division (see image 102 of series #2 and image 116 of series #7). Despite the relatively severe narrowing at the origin, there appears to be good filling distally. Posterior circulation: The proximal V4 segments are excluded in the field of view provided. The imaged V4 segments appear widely patent. There appears to be filling of both PICAs. No aneurysm is seen at either PICA origin. The basilar artery, superior cerebellar arteries and main branches of the posterior cerebral arteries are patent. There is focal narrowing in the mid to distal P2 segment of the right [employer]. This appears to represent at least 50% narrowing (see image 98 of series #7). This could be hemodynamically significant. However, there is good filling of the [employer] distal to this level. 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 The neck measures about 2.5 mm on coronal reformations. The aneurysm measures about 3.8 mm in width and about 3 mm in length. There is a small left posterior communicating artery. No definite right posterior communicator is demonstrated. Postcontrast Head CT No enhancing space-occupying mass lesion is demonstrated. There appears to be normal intravascular contrast enhancement in the dural venous sinuses and deep venous structures. IMPRESSION: 1. There is calcified atherosclerotic plaque in the carotid siphons with associated mild to moderate ICA narrowing. No hemodynamically significant ICA stenosis is identified. 2. There is mild narrowing in proximal A1 segment right anterior cerebral artery. Main JAY branches are otherwise unremarkable. 3. Occlusion, middle branch, at left MCA trifurcation, roughly 5-6 mm distal to its origin. The occlusion is probably from intraluminal thrombus. 4. Multifocal stenoses in M1 segment right MCA, probably from intracranial atherosclerosis. The most severe narrowing represents about 60% NASCET type stenosis. 5. Severe narrowing at origin of M2 branch for posterior division right MCA. 6. There is focal narrowing in mid to distal P2 segment, right [employer] that may be hemodynamically significant. Main branches of the posterior circulation are otherwise widely patent. 7. 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 The call report notification system was initiated by Dr. Sean Guzman at 01:46 PM on 08/14/2019. The above call report findings were discussed with Dr Lily Ortiz by Dr. Sean Guzman at 02:07 PM on 08/14/2019.
--- NOTE | 2019-08-14 14:24 | CT Report ---
Reason: Stuttering acute stroke Procedure Date: 08/14/2019 Accession Number: [id number] / [id number] Procedure: CT - ANGIO NECK W CPT Code: Final Report FULL RESULT: CT ANGIOGRAM NECK INDICATION: 78-year-old female. Stuttering. Acute stroke. TECHNIQUE: 80 cc of Optiray 320 contrast were injected at a rapid rate through a large bore left antecubital intravenous catheter. The neck was scanned helically during arterial phase. The data was reconstructed into 0.5 mm axial images. In addition, sagittal and coronal MIP reconstructions have been generated to provide better evaluation of the extracranial carotid and vertebral arteries. Significant arterial stenoses will be assessed using NASCET-type measurements. In accordance with CT protocol optimization, one or more of the following dose reduction techniques were utilized for this exam: automated exposure control, adjustment of mA and/or KV based on patient size, or use of iterative reconstructive technique. COMPARISON: None. FINDINGS: There is a four-vessel aortic arch, the left vertebral artery arising directly from the arch as the third branch. This represents a known anatomical variant. Atherosclerotic disease is identified in the arch. There are calcified plaques in the first order, supra-aortic arteries. However, no significant associated arterial stenosis is identified. Right carotid artery: There is some circumferential wall thickening in the distal common carotid artery, extending to the bifurcation, likely representing noncalcified atherosclerotic plaque. Minimal associated narrowing in the distal common carotid artery. Calcified plaque is identified along the anterior wall in the proximal bulb without associated stenosis. The extracranial ICA is widely patent throughout. Left carotid artery: A segment of the proximal common carotid artery is partially obscured due to beam hardening artifact from dense contrast in adjacent venous structures. The mid and distal common carotid artery are better seen and appear patent throughout. There is calcified plaque in the distal common carotid artery without significant associated narrowing. In addition, calcified plaque is seen in the proximal bulb without significant associated narrowing. There is a tight hairpin loop in the proximal cervical segment with associated luminal fold that gives rise to moderate narrowing. The extracranial ICA is otherwise widely patent throughout. Right vertebral artery: Patent from origin to distal V3 segment. There is tortuosity throughout that makes evaluation somewhat challenging; however, no significant stenosis is identified. Left vertebral artery: Patent from origin to distal V3 segment. The proximal/mid V2 segment is partially obscured due to beam hardening artifact from dense contrast and surrounding venous structures. However, grossly no significant stenosis is identified. IMPRESSION: 1. There is atherosclerotic disease at the carotid bifurcations without associated hemodynamically significant stenosis. 2. No evidence of dissection or hemodynamically significant stenosis in the extracranial vertebral arteries.
[2019-08-14] MEDS ORDERED: D5NS W/20 MEQ KCL 1,000 ML IV SCH (15:00)
--- NOTE | 2019-08-14 15:30 | Discharge Plan ---
Discharge Plan Problem Reviewed?: Yes Disposition: 02 Transfer Acute Care Hosp Condition: Serious No Smoking: If you smoke, Please STOP! Call for help. Follow-up with: Vania Gómez MD [Primary Care Provider] -
[2019-08-14 15:45] VITALS: BP 217/81
[2019-08-14] MEDS ORDERED: INSULIN REGULAR HUMAN 300 UNIT/3 ML VIAL SUBQ SCH (16:00)
--- NOTE | 2019-08-14 16:55 | HISTORY & PHYSICAL EXAMINATION ---
DATE OF SERVICE: 08/14/2019 Physician: Lily Ortiz MD HISTORY OF PRESENT ILLNESS: This is an 79-year-old female with a history of diabetes on metformin, hypertension on 4 antihypertensives, and hyperlipidemia on Zocor. The entire history is obtained from chart review, history obtained from the ER doctor, and from the . The patient cannot speak because she is aphasic. The patient had last known well at about 9 p.m. last night and then this morning when the entered her room, he found her to be unable to speak and have right arm and leg weakness. He called 911 immediately. In the ER, she had a blood pressure in the 230-250 systolic range, heart rate was 70s-80s, she was afebrile, and she had significant improvement of the right arm and leg weakness but continued aphasia. Her NIH stroke score was 7. She was not felt to be a TPA candidate because of the long duration from last known well as well as the marked hypertension, the later TPA an absolute contraindication. The patient was accepted for inpatient status to work up stroke. A head CT done through the ER showed no acute findings, there were atrophic changes and suggestion of ischemic changes noted. The patient received labetalol 20 mg IV x2 in the ER as well as aspirin 300 mg suppository. On presentation to her inpatient bed, she had even further recovery of use of the right arm and right leg and her right facial droop had also resolved and she had a symmetric smile. I evaluated her NIH stroke score at 2. Approximately 15-20 minutes later, the nurse called me that she was again having right facial droop and right arm weakness, which I confirmed, and the NIH stroke score had again gone to 7. PAST MEDICAL HISTORY: Diabetes on oral agents, hypertension on 4 blood pressure medications, and hyperlipidemia. FAMILY HISTORY: Patient does have 1 parent that has cardiovascular disease, according to the . The patient is a second time, they have 2 children in common. The patient's children do have cardiovascular disease as well. ALLERGIES: LACTOSE. Aspirin causes indigestion only, not a true allergy. MEDICATIONS: 1. Tylenol with codeine p.r.n. 2. Vitamin D3 2000 units daily. 3. Prolia every 6 months. 4. Losartan 50 mg daily. 5. Nifedipine 30 mg daily. 6. Atenolol unknown dose and possibly 1 other blood pressure medicine. 7. Metformin 500 mg b.i.d. 8. Simvastatin, which she is not compliant with. 9. She takes no aspirin. REVIEW OF SYSTEMS: The patient is normally completely independent. The states she does not have any cardiac history and has not had complaints of chest pain, dyspnea on exertion, edema, palpitations, or syncope. There is a known heart murmur. The states that her kidney function is being monitored because of the high blood pressure. The states that the patient is compliant usually with her diabetic and blood pressure medications, but admits to being noncompliant with cholesterol management. A comprehensive review of systems was performed, the pertinent positives are listed, the rest are negative. SOCIAL HISTORY: She does not smoke cigarettes and never smoked, uses no alcohol, no illicit drug use history. The patient lives with her . 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 PHYSICAL EXAMINATION: GENERAL: Elderly female. She appears in no distress. VITAL SIGNS: Blood pressure running 170-120 systolic/70-90 diastolic. Heart rate 70 in sinus rhythm, afebrile. Room air saturation 100%. HEENT: Reveals mild right facial droop once again. NECK: Negative JVD at a 30-degree upright angle. There is a transmitted murmur, but no carotid bruits. CHEST: Clear. HEART: Normal S1, S2, with a 3/6 honking systolic murmur heard throughout the precordium and radiating to the neck as well as down into the abdomen. There is no gallop. ABDOMEN: Soft, nontender, nondistended. Decreased bowel sounds. EXTREMITIES: No clubbing, cyanosis or edema. NEUROLOGIC: Her left foot has a normal downgoing Babinski. The right foot has no response on Babinski check. She has 1/5 motor strength in the right arm, and she is not moving her right foot. She is completely aphasic. LABORATORY DATA: Normal electrolytes, BUN 17, creatinine 1.1. There is no old creatinine for comparison. Glucose 160, A1c 6.9, magnesium 2.2. Normal liver tests. Troponin high sensitivity at 7.8, then on repeat 9.1. Fasting total cholesterol 222 with LDL 143, triglycerides 155, and HDL 48. White blood count 7.4, hemoglobin 14.5, platelet count 159. INR normal at 1.0. Urinalysis showed high protein, otherwise was unremarkable. IMAGING: Chest x-ray: Normal cardiopulmonary exam, no cardiomegaly. Head CT: No acute findings, but there is brain atrophy and findings of chronic ischemic brain disease. EKG: Normal sinus rhythm, marked LVH voltage with strain pattern. There is no old EKG available for comparison. IMPRESSION/DIAGNOSES: 1. Aphasia due to acute cerebrovascular accident. 2. Hypertension, uncontrolled. 3. Diabetes mellitus. 4. Acute kidney injury. 5. Proteinuria. 6. Heart murmur. 7. Elevated cholesterol. 8. LVH on EKG. PLAN: 1. Admit the patient to the ICU for frequent neuro checks and blood pressure monitoring and management. 2. Allow permissive hypertension during this acute stroke. 3. Contact Neurology at [facility] regarding further management in the face of a stuttering stroke. I spoke to Dr. Kylee Jones, who advised a STAT CT angio of the head and neck. 4. Obtain an Echo with bubble study to rule out shunt or clot. This will also evaluate her heart murmur. 5. Continue with daily aspirin. 6. Obtain a brain MRI. 7. Obtain speech therapy evaluation. 8. She will eventually need PT and OT. 9. When she is able to swallow, will begin statin treatment and resume her oral blood pressure medications. Before she can swallow, we will use I0. Blood pressure control, starting with Lopressor IV to prevent rebound hypertension since she is off her Atenolol. Deep venous thrombosis prophylaxis: SCDs. CODE STATUS: FULL CODE. ATTESTATION: The patient is expected to be discharged or transferred to another facility within 96 hours: Yes. cc: Vania Gómez MD TD: 08/14/2019 13:06 RUDY
--- NOTE | 2019-08-14 18:34 | PROVIDER PROGRESS NOTE ---
Hospitalist Cross-cover Note - Cross-Cover Note Cross-Cover Note: After Neurology at [facility] was contacted by me, the on-call Neurologist recommended a CTA of the head and neck. There was delay in obtaining the CTA with contrast because the patient lost her IV site and a Nurse Noise Abatement Engineer had to assist putting in an IV. The CTA neck showed mild atherosclerosis. The CTA head showed a clot occluding a branch of a left intracerebral artery and several other areas of focal atherosclerosis, with a P2 branch having a possibly hemodynamically significant stenosis. I again reached the on-call Neurologist and reviewed these results with her, and she advised that the patient be transferred to [facility] as soon as possible and she initiated a code stroke IR. All the extra paperwork from [facility] was completed and faxed in order for rapid transfer and air transport was arranged. The gave consent. The patient was transported in stable condition with blood pressure 170-220 systolic, heart rate 80 in sinus rhythm, and no change in her last neuro exam which had moderate right arm and right leg weakness, mild right facial droop and complete aphasia. Her NIHSS was 7. The time of departure was approx 1530, which was approx 18 hours from her last known well. An Echo had just been completed here and the Dx was added to the faxed paperwork: she has moderate-severe aortic stenosis.
== END 2019-08-14 15:45 | disposition short-term general hospital (02) | DRG 65 ==
LOC: EDUNIT# → ED 07:10 → MS2 08:42 → ICU 11:00
PROVIDERS: ADMIT Internal Medicine; ATTEND Internal Medicine
DX: I63.9 Cerebral infarction, unspecified (principal); I63.30 Cerebral infarction due to thrombosis of unspecified cerebral artery; N17.9 Acute kidney failure, unspecified; G81.91 Hemiplegia, unspecified affecting right dominant side; R47.01 Aphasia; I10 Essential (primary) hypertension; R29.810 Facial weakness; R29.707 NIHSS score 7; I11.9 Hypertensive heart disease without heart failure; E11.9 Type 2 diabetes mellitus without complications; E78.5 Hyperlipidemia, unspecified; I35.0 Nonrheumatic aortic (valve) stenosis; T46.6X6A Underdosing of antihyperlipidemic and antiarteriosclerotic drugs, initial encounter; Z91.128 Patient's intentional underdosing of medication regimen for other reason; Y92.009 Unspecified place in unspecified non-institutional (private) residence as the place of occurrence of the external cause; G31.9 Degenerative disease of nervous system, unspecified; I67.2 Cerebral atherosclerosis; I67.82 Cerebral ischemia; Z79.84 Long term (current) use of oral hypoglycemic drugs; Z79.899 Other long term (current) drug therapy; Z82.49 Family history of ischemic heart disease and other diseases of the circulatory system
CPT/HCPCS: 36415; 70496; 70498; 71045; 80053; 80061; 81001; 83036; 83690; 83735; 84484; 85025; 85610; 85730; 87150; 92610; 93005; 93306; 96374; 99285; A9270; Q9967; 70450; 81003; 83721; 87086

== ENCOUNTER 2019-10-29 13:08 | Inpatient (IN) | payer MEDICARE ==
--- NOTE | 2019-10-29 13:32 | ED Physician Documentation ---
PD HPI FOCAL NEURO - Stated complaint Stated Complaint: RT SIDE WEAKNESS - History obtained from History obtained from: Patient (79-year-old woman was seen here in August, at that time she had stroke symptoms on the right side that were rapidly improving. CT angiography of the head at the time showed an occlusion of the middle branch of the left MCA. She was outside of the TPA window and was sent to [facility] where per the patient a thrombectomy was done, although history is somewhat limited from the patient because she is having some a aphasia right now. She presents today for right-sided deficits. She is unable to say the acuity of how long they have been going on I am able to ascertain that when she left [facility] she was not completely better, now she is worse again with deficits that are similar, when asked the time of onset she says only "a long time." The is not available on initial evaluation because he is out in the parking lot because of current visitation policies because of coronavirus but I have 2 people in the parking lot looking for him so we can find out the time of onset.) Review of Systems Unable to obtain: Confused PD PAST MEDICAL HISTORY - Past Medical History Cardiovascular: Hypertension, Murmur Respiratory: None Neuro: Headaches, Migraines Endocrine/Autoimmune: Type 2 diabetes GI: None 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 : None HEENT: None Psych: None Musculoskeletal: Rheumatoid arthritis, Fatigue Derm: None - Past Surgical History Past Surgical History: Yes General: Appendectomy, Colonoscopy Ortho: Shoulder arthroplasty /ASSEMBLER DIELECTRIC HEATER: Hysterectomy HEENT: Cataracts - Present Medications Home Medications: Ambulatory Orders Medication Instructions Recorded Confirmed Acetaminophen with Codeine 1 tab PO Q4H PRN 08/14/19 10/29/19 [Acetaminophen-Cod #2 Tablet] NIFEdipine [Nifedipine ER] 30 mg PO DAILY 08/14/19 10/29/19 ALPRAZolam [Alprazolam] 0.5 mg PO BID PRN 10/29/19 10/29/19 Atorvastatin Calcium 40 mg PO QPM 10/29/19 10/29/19 Clopidogrel [Plavix] 75 mg PO DAILY 10/29/19 10/29/19 Escitalopram Oxalate 5 mg PO DAILY 10/29/19 10/29/19 Metformin HCl 500 mg PO BIDWM 10/29/19 10/29/19 carvediloL [Carvedilol] 12.5 mg PO BID 10/29/19 10/29/19 - Allergies Allergies/Adverse Reactions: Allergies Allergy/AdvReac Type Severity Reaction Status Date / Time aspirin AdvReac Intermediate Nausea Verified 10/29/19 13:24 lactose AdvReac Intermediate Nausea Verified 10/29/19 13:24 - Social History Does the pt smoke?: No Smoking Status: Never smoker Does the pt drink ETOH?: Yes Does the pt have substance abuse?: No - Immunizations Immunizations are current?: Yes - POLST Patient has POLST: No PD ED PE NORMAL - Vitals Vital signs reviewed: Yes - General General: Other (She is alert Cooperative, she recognizes her name but cannot say her name. She cannot name the month or the year. She has a significant a aphasia.) - HEENT HEENT: PERRL, EOMI - Neck Neck: Supple, no meningeal sign, No bony TTP - Cardiac Cardiac: RRR, Other (2 out of 6 grinding middle pitched systolic murmur) - Respiratory Respiratory: No respiratory distress, Clear bilaterally - Abdomen Abdomen: Normal bowel sounds, Soft, Non tender - Extremities Extremities: No edema, No calf tenderness / cord NIHSS - Time Time: 13:25 - Level of Consciousness Level of consciousness: (0) Alert, Keenly responsive LOC Questions: (2) Answers neither correct LOC Commands: (0) Performs both correctly - Gaze Best Gaze: (0) Normal - Visual Visual: (0) No loss - Facial Palsy Facial Palsy: (0) Normal, symmetrical movement - Motor Arms (both separate) Motor Arm (right): (1) Drift Motor Arm (left): (0) No drift - Motor Legs (both separate) Motor Leg (right): (1) Drift Motor Leg (left): (0) No drift - Limb Ataxia Limb Ataxia: (0) Absent - Sensory Sensory: (0) Normal - Best Language Best Language: (2) Severe aphasia - Dysarthria Dysarthria: (0) Normal - Extinction and Inattention (formally neg Extinction and inattention: (0) No abnormality - Total Score/Results Total Score/Result: 6 Results - Vitals Vitals: Vital Signs - 24 hr 10/29/19 10/29/19 10/29/19 13:24 14:23 14:30 Temperature 36.6 C Heart Rate 70 87 75 Respiratory 19 22 21 Rate Blood Pressure 140/60 H 154/106 H 133/71 H O2 Saturation 99 99 100 10/29/19 10/29/19 15:00 15:30 Temperature Heart Rate 111 H 72 Respiratory 24 11 L Rate Blood Pressure 170/87 H 150/73 H O2 Saturation 98 97 Oxygen O2 Source Room air - EKG (time done) 1350 Rate: Rate (enter#) (75) Rhythm: NSR [place]: Normal QRS: LVH (with repol abn) Compare to prior EKG: Unchanged from prior EKG (no chg from 08/14/19) Computer interpretation: Agree with computer - Labs Labs: Laboratory Tests 10/29/19 10/29/19 10/29/19 15:06 15:06 15:06 WBC 6.1 RBC 4.91 Hgb 14.6 Hct 42.9 MCV 87.4 MCH 29.7 MCHC 34.0 RDW 13.0 Plt Count 171 MPV 9.8 Neut # (Auto) 3.1 Lymph # (Auto) 2.4 [place] # (Auto) 0.4 Eos # (Auto) 0.2 Baso # (Auto) 0.0 Absolute Nucleated RBC 0.00 Nucleated RBC % 0.0 PT 12.5 INR 1.1 Sodium 142 Potassium 4.3 Chloride 109 Carbon Dioxide 22 Anion Gap 11.0 BUN 15 Creatinine 0.9 Estimated GFR (MDRD) 60 L Glucose 119 H Calcium 9.3 Total Bilirubin 1.6 H AST 38 ALT 23 Alkaline Phosphatase 56 Total Protein 7.7 Albumin 4.7 Globulin 3.0 Albumin/Globulin Ratio 1.6 Lipase 38 - Rads (name of study) CT of the head without contrast, stroke protocol Radiology: Discussed with rads (Expected evolution of left MCA stroke without other acute findings or hemorrhage) CTA Head Radiology: EMP read contemporaneously (1. The previous study of 08/14/2019 demonstrated occlusion of the mid M2 branch at the left MCA trifurcation, roughly 6.5 mm distal to its origin from intraluminal thrombus. This branch has now gone on to cclude to its origin. However, the other 2 left MCA branches remain patent. 2. There is severe narrowing t the origin of the A1 segment for the right anterior cerebral artery. This appears to progress. 3. Again demonstrated are multifocal stenoses in the M1 segment for the right MCA, most prominent near the junction between the proximal and middle thirds were degree of stenosis represents about 60% diameter narrowing. 4. Again demonstrated is severe stenosis at the origin of the inferior M2 branch at right MCA trifurcation, essentially unchanged. 5. Again demonstrated is 50% or greater narrowing in the mid P2 egment of the right PREPARATION SUPERVISOR, essentially unchanged. 6. Stable appearance of known, previously emonstrated, basilar apex aneurysm.) CTA Neck Radiology: EMP read contemporaneously (NAD) PD MEDICAL DECISION MAKING - ED course ED course: 79-year-old woman presents with stroke symptoms of unclear acuity. She had an left MCA CVA on 's Day of this year. We were initially unable to get any clear history of the time of the new onset from the patient and the was not reachable. I discussed the case with Dr. Kylee Zelaya, [facility], she confirmed that when the patient left rehab she had normal upper and lower extremity strength with occasional word finding difficulty and confusion. This is clearly much worse now but again we do not know the time course. That said she agrees that the patient is not a TPA candidate due to having a stroke within the last 3 months. did arrive and said that symptoms probably started around 10 AM this morning. Prior to that she was fine this morning. CT angiography demonstrates worsening of the left MCA occlusion and [facility] was called back for consultation regarding that. I reconsulted Dr. Zelaya at [facility] after the CT angiography of the head was resulted noting worsening thrombus in the left M2 branch of the MCA. She will review the images and call me back. Not sure if she would be a code IR candidate given the recent stroke into the same territory. Dr. Zelaya called me back again, 3:45 PM. She had discussed it with the interventional neuroradiologist who felt that this patient was not a good candidate for thrombectomy and recommends conservative medical care here. Patient did become quite agitated, had minimal improvement with a milligram of Ativan IM and was gotten a small amount of IV Haldol with improvement. I think the agitation was mostly due to frustration related to the worsening aphasia. I also spoke with the daughter by phone who says that the rehab plans over the last month have failed, I presume due to coronavirus. Spoke with Dr. Schulz for admission at 3:59 PM, he requests that I put an order for an MRI of the brain since is getting late in the day and would like to get this completed before they leave. - TPA CVA checklist Absolute contraindications: positive: CVA < 3 months Departure - Departure Disposition: 66 [facility] DC/Xfer Clinical Impression: Stroke Condition: Stable
[2019-10-29] MEDS ORDERED: IOVERSOL 320 100 ML VIAL IVP ONE ×2 (13:33→14:39)
--- NOTE | 2019-10-29 14:13 | CT Report ---
Reason: stroke symptoms Procedure Date: 10/29/2019 Accession Number: [id number] / [id number] Procedure: CT - Head W/O Stroke Protocol CPT Code: Final Report FULL RESULT: CT HEAD WITHOUT CONTRAST INDICATION: 79-year-old female with worsened right-sided deficits of uncertain chronicity. TECHNIQUE: Sequential 5 mm axial images were obtained through the brain. In accordance with CT protocol optimization, one or more of the following dose reduction techniques were utilized for this exam: automated exposure control, adjustment of mA and/or KV based on patient size, or use of iterative reconstructive technique. COMPARISON: Head CT and brain MRI 08/15/2019 ([facility]). FINDINGS: Again demonstrated is generalized cerebral and cerebellar volume loss, stable. There is mild to moderate third/lateral ventriculomegaly, likely ex vacuo and essentially unchanged. An old lacunar-type infarction is again noted in the anterior right putamen. Encephalomalacia is now demonstrated in the left insula, left subinsular region and in the perisylvian left frontal lobe, consistent with the sequela of the previously demonstrated (see brain MRI 08/15/2019) infarctions in the left MCA territory. Again demonstrated is multifocal white matter disease in the supratentorial brain, likely representing chronic microangiopathy. The attenuation of the cortex and white matter is otherwise unremarkable. There is no intracranial hemorrhage or abnormal extra-axial fluid collection. No mass effect or midline shift. The skull and skull base appear intact. The middle ear cavities and the mastoid air cells appear well aerated and clear. Small mucous retention cysts are again noted in the maxillary sinuses. There is mild mucosal thickening in a few ethmoid air cells. The paranasal sinuses are otherwise clear. Calcified atherosclerotic plaque is noted in the carotid siphons bilaterally. IMPRESSION: 1. An old lacunar infarction is again seen in the right putamen. 2. Interval development of encephalomalacia in the left insula, left subinsular region, left ayala radiata and perisylvian left frontal lobe, consistent with expected evolution of previously demonstrated (see brain MRI 08/15/2019) infarctions in the left MCA territory. 3. Again demonstrated is multifocal white matter disease in the supratentorial brain, likely representing chronic microangiopathy. 4. There is intracranial atherosclerosis. 5. No acute intracranial pathology is identified. In particular, there is no intracranial hemorrhage and there is no CT evidence of an acute large vessel territory cortical infarction (the ASPECTS appears to equal 10 bilaterally), however, it should be noted that early and small infarctions can be missed on CT. Therefore, consider further assessment with MRI as clinically warranted. The critical test notification system was initiated by Dr. Sean Guzman at 02:06 PM on 10/29/2019. The above critical test findings were discussed with Dr. Hung Mcclain by Dr. Sean Guzman at 02:11 PM on 10/29/2019.
[2019-10-29] MEDS ORDERED: LORazepam 2 MG/ML VIAL IM STA (14:23)
--- NOTE | 2019-10-29 15:05 | CT Report ---
Reason: R side defecits/aphasia Procedure Date: 10/29/2019 Accession Number: [id number] / [id number] Procedure: CT - ANGIO HEAD W/WO CPT Code: Final Report FULL RESULT: CT ANGIOGRAM HEAD INDICATION: 79-year-old female. History of recent left MCA infarction in mid August of this year. The patient presents with worsening right-sided deficit of undetermined chronicity. TECHNIQUE: 80 mL of Optiray 320 contrast were injected at a rapid rate through a large bore, antecubital intravenous catheter. The head was scanned helically during arterial phase. The data was reconstructed in 2.5 mm axial images. In addition, MIP reconstructions have been generated in multiple projections In accordance with CT protocol optimization, one or more of the following dose reduction techniques were utilized for this exam: automated exposure control, adjustment of mA and/or KV based on patient size, or use of iterative reconstructive technique. COMPARISON: 08/14/2019. FINDINGS: Anterior circulation: Again demonstrated is a calcified plaque in the carotid siphons with obvious associated, hemodynamically significant ICA stenosis. No definite ICA aneurysm is demonstrated. Again demonstrated is stenosis at the origin of the A1 segment of the right anterior cerebral artery. This appears to have progressed since the previous examination. There is relatively severe narrowing at this time (see image 70 of series 5). The left A1 remains patent. No definite anterior communicating artery is demonstrated. There appears to be good filling of A2 and distal JAY branches. No obvious JAY branch occlusion has developed. There is mild narrowing of the origin of the M1 segment for the right MCA. Again demonstrated is a focal stenosis near the junction between the proximal and middle thirds, just distal to the takeoff of the anterior temporal artery. The degree of narrowing is essentially unchanged. This measured 60% diameter stenosis on the prior study. There is some mild narrowing in the distal M1 segment, unchanged. Again demonstrated is severe narrowing at the origin for the most inferior of the 3 M2 branches (image 120 of series 7) unchanged. There continues to be good filling distal to the stenosis. The M1 segment for the left MCA is patent. There is filling of only 2 M2 branches at the left MCA bifurcation. The middle branch now appears to be occluded, back to its origin. Posterior circulation: The vertebral arteries and the PICAs are patent. The basilar artery is patent. Again demonstrated is filling of the superior cerebellar arteries and the posterior cerebral arteries. Again demonstrated is 50% or greater stenosis in the mid P2 segment for the right CONTOUR PATH TAPE MILL OPERATOR, essentially unchanged. In addition, there is potentially significant narrowing in the proximal P2 segment (see image 95 of series 7 and image 79 of series 5) in retrospect, also seen on the prior study and unchanged or mildly progressed since that time. The main branches of the left CONTOUR PATH TAPE MILL OPERATOR are patent without significant focal stenosis. 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 The neck of the aneurysm appears to be arising at least in part from the proximal P1 segment of the left CONTOUR PATH TAPE MILL OPERATOR. IMPRESSION: 1. The previous study of 08/14/2019 demonstrated occlusion of the mid M2 branch at the left MCA trifurcation, roughly 6.5 mm distal to its origin from intraluminal thrombus. This branch has now gone on to occlude back to its origin. However, the other two left MCA branches remain patent. 2. There is severe narrowing at the origin of the A1 segment for the right anterior cerebral artery. This appears to have progressed. 3. Again demonstrated are multifocal stenoses in the M1 segment for the right MCA, most prominent near the junction between the proximal and middle thirds where degree of stenosis represents about 60% diameter narrowing. 4. Again demonstrated is severe stenosis at the origin of the inferior M2 branch at right MCA trifurcation, essentially unchanged. 5. Again demonstrated is 50% or greater narrowing in the mid P2 segment of the right CONTOUR PATH TAPE MILL OPERATOR, essentially unchanged. 6. Stable appearance of known, previously demonstrated, basilar apex aneurysm.
[2019-10-29] MEDS ORDERED: HALOPERIDOL 5 MG/ML VIAL IVP ONE (15:10)
[2019-10-29 15:13] LABS: BASOPHILS % (AUTO) 0.5 %; EOSINOPHILS # (AUTO) 0.2 10^3/uL (0.0-0.7); EOSINOPHILS % (AUTO) 2.5 %; HGB - HEMOGLOBIN 14.6 g/dL (12.0-16.0); LYMPHOCYTES # (AUTO) 2.4 10^3/uL (1.5-3.5); MEAN CORPUSCULAR HEMOGLOBIN 29.7 pg (27.0-31.0); MEAN CORPUSCULAR VOLUME 87.4 fL (81.0-99.0); MEAN PLATELET VOLUME 9.8 fL (7.9-10.8); MONOCYTES # (AUTO) 0.4 10^3/uL (0.0-1.0); MONOCYTES % (AUTO) 6.7 %; NEUTROPHILS # (AUTO) 3.1 10^3/uL (1.5-6.6); NEUTROPHILS % (AUTO) 50.1 %; PLT - PLATELET COUNT 171 10^3/uL (130-450); RED BLOOD COUNT 4.91 10^6/uL (4.20-5.40); WHITE BLOOD COUNT 6.1 x10^3/uL (4.8-10.8)
[2019-10-29 15:17] LABS: INR 1.1 (0.8-1.2); PT - PROTHROMBIN TIME 12.5 secs (9.9-12.6)
--- NOTE | 2019-10-29 15:24 | CT Report ---
Reason: R side defecits/aphasia Procedure Date: 10/29/2019 Accession Number: [id number] / [id number] Procedure: CT - ANGIO NECK W CPT Code: Final Report FULL RESULT: CT ANGIOGRAM NECK INDICATION: 79-year-old female with history of left MCA infarction. The patient has progressive right-sided deficits of uncertain chronicity. Please assess. TECHNIQUE: 80 mL of Optiray 320 contrast were injected at a rapid rate through a large bore left antecubital intravenous catheter. The neck was scanned helically during arterial phase. The data was reconstructed into 0.5 mm axial images. In addition, MIP reconstructions have been generated in the sagittal and coronal planes to allow better assessment of the extracranial carotid and vertebral arteries. Significant arterial stenoses will be assessed using NASCET-type measurements. COMPARISON: 08/14/2019. FINDINGS: There is a four-vessel aortic arch, the left vertebral artery arising directly from the arch as the third branch. This represents a known anatomical variant. Atherosclerotic disease is again demonstrated in the arch. There are calcified atherosclerotic plaques at the origins for the first order, supra-aortic arteries without significant associated stenosis. Right carotid artery: Evaluation is somewhat limited due to motion artifact. Again demonstrated is atherosclerotic disease at the right carotid bifurcation without significant associated carotid artery stenosis. Left carotid artery: Evaluation is somewhat limited due to artifact from patient motion. Again demonstrated is calcified plaque at the carotid bifurcation without significant associated carotid artery stenosis. Right vertebral artery: Patent from origin to distal V3 segment without significant focal narrowing. Left vertebral artery: No significant narrowing is seen at the origin. The V1, V2 and V3 segments are patent without significant focal narrowing. Noted is ectasia of the ascending thoracic aorta. The imaged upper ascending thoracic aorta measures up to about 3.5 cm diameter. IMPRESSION: 1. Motion artifact somewhat limits evaluation; however, no significant stenosis has developed at either carotid bifurcation. 2. The vertebral arteries are patent without evidence of dissection or significant stenosis.
[2019-10-29 15:30] LABS: ALBUMIN 4.7 g/dL (3.2-5.5); ALBUMIN/GLOBULIN RATIO 1.6 (1.0-2.2); BILIRUBIN,TOTAL 1.6 mg/dL (0.2-1.0); CALCIUM 9.3 mg/dL (8.5-10.3); CREATININE 0.9 mg/dL (0.4-1.0); TOTAL PROTEIN 7.7 g/dL (6.7-8.2)
--- NOTE | 2019-10-29 16:10 | PHARMACY PROGRESS NOTE ---
- Best Possible Medication History Admit Date and Time: Patient still in ED Processed by: Pharmacy Medication History completed: Yes Secondary Source(s): Physician records, Pharmacy records, Insurance records As the person ultimately responsible for medication therapy, providers are able to order a medication from an existing home medication list in [facility] via the "Reconcile Routine" prior to Confirmation of that medication by technical customer support specialist. Such practice is discouraged except when the physician, in their clinical judgment, deems that a medical need exists for a medication without regard to previous use.
[2019-10-29] MEDS ORDERED: ACETAMINOPHEN 325 MG TABLET PO PRN (16:22)
[2019-10-29] MEDS ORDERED: SODIUM CHLORIDE FLUSH 0.9% 10 ML SYRINGE IVP PRN (16:22)
[2019-10-29] MEDS ORDERED: ONDANSETRON 4 MG/2 ML VIAL IVP PRN (16:22)
[2019-10-29] MEDS ORDERED: ALPRAZolam 0.25 MG TABLET PO PRN (16:29)
--- NOTE | 2019-10-29 16:36 | HISTORY & PHYSICAL EXAMINATION ---
Chief Complaint - Chief Complaint Chief Complaint: stroke History of Present Illness - History of Present Illness HPI Comment/Other: This is a 79-year-old woman with a PMH significant for recent stroke with right side weakness in August, HTN, DM2, HLD, migraines headache, RA, who present ER complain of aphasia and worsening right side weakness. At Aug. pt had stroke, pt was transferred to [facility] for high level of care. pt had a thrombectomy was do ne. pt then was discharged with home health PT/OT/ST. pt's report today around 10am, when pt saw ST, pt was found to have worsening speech. also pt could not walk as she can do before. CTA of head reveals "the previous study of 08/14/2019 demonstrated occlusion of the mid M2 branch at the left MCA trifurcation, roughly 6.5 mm distal to its origin from intraluminal thrombus. This branch has now gone on to cclude to its origin. However, the other 2 left MCA branches remain patent. 2. There is severe narrowing t the origin of the A1 segment for the right anterior cerebral artery. This appears to progress. 3. Again demonstrated are multifocal stenoses in the M1 segment for the right MCA, most prominent near the junction between the proximal and middle thirds were degree of stenosis represents about 60% diameter narrowing. 4. Again demonstrated is severe stenosis at the origin of the inferior M2 branch at right MCA trifurcation, essentially unchanged. 5. 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 6. Stable appearance of known, previously emonstrated, basilar apex aneurysm" -from radiologist's review. ER provider consulted [facility], they recommended pt for medical management. pt denies fever, chill, cough, chest pain, shortness of breath, headache. pt is admitted for stroke medical management. discussed with pt and pt's for goal of care, pt and her request DNR/DNI. History - Past Medical History Cardiovascular: reports: Hypertension, Murmur Respiratory: reports: None Neuro: reports: Headaches, Migraines Endocrine/Autoimmune: reports: Type 2 diabetes GI: reports: None CERTIFIED FRAUD EXAMINER: reports: None : reports: None HEENT: reports: None Psych: reports: None Musculoskeletal: reports: Rheumatoid arthritis, Fatigue Derm: reports: None MRSA Hx?: No - Past Surgical History General: reports: Appendectomy, Colonoscopy Ortho: reports: Shoulder arthroplasty /CERTIFIED FRAUD EXAMINER: reports: Hysterectomy HEENT: reports: Cataracts - Family & Social History Family History: Mother: , CVA/TIA, Diabetes, Type 2, Father: Family History Comment/Other: pt report her mother from stroke with DM2, she report her father of older age. Social History Notes: pt denies alcohol, smoking, or drug issue. she is living with her in [facility]. - POLST Patient has POLST: No Meds/Allgy - Home Medications Home Medications: Ambulatory Orders Medication Instructions Recorded Confirmed Acetaminophen with Codeine 1 tab PO Q4H PRN 08/14/19 10/29/19 [Acetaminophen-Cod #2 Tablet] NIFEdipine [Nifedipine ER] 30 mg PO DAILY 08/14/19 10/29/19 ALPRAZolam [Alprazolam] 0.5 mg PO BID PRN 10/29/19 10/29/19 Atorvastatin Calcium 40 mg PO QPM 10/29/19 10/29/19 Clopidogrel [Plavix] 75 mg PO DAILY 10/29/19 10/29/19 Escitalopram Oxalate 5 mg PO DAILY 10/29/19 10/29/19 Metformin HCl 500 mg PO BIDWM 10/29/19 10/29/19 carvediloL [Carvedilol] 12.5 mg PO BID 10/29/19 10/29/19 - Allergies Allergies/Adverse Reactions: Allergies Allergy/AdvReac Type Severity Reaction Status Date / Time aspirin AdvReac Intermediate Nausea Verified 10/29/19 13:24 lactose AdvReac Intermediate Nausea Verified 10/29/19 13:24 Review of Systems - Constitutional Constitutional: denies: Fever, Chills, Night sweats - Eyes Eyes: denies: Pain, Amaurosis, Blurred vision, Spots in vision, Field loss, Vision loss - Ears, Nose & Throat Ears, Nose & Throat: denies: Hearing loss, Hearing aids, Tinnitus, Nasal pain, Nosebleeds, Nasal congestion, Sore throat, Bleeding gums - Cardiovascular Cariovascular: denies: Irregular heart rate, Palpitations, Chest pain, Edema, Lightheadedness, Syncope, Exertional dyspnea, Decr. exercise tolerance - Respiratory Respiratory: denies: Cough, Sputum production, Wheezing, Snoring, Hemoptysis, Orthopnea, SOB at rest, SOB with exertion - Gastrointestinal Gastrointestinal: denies: Abdominal pain, Constipation, Diarrhea, Rectal bleeding, Black stools, Bloody stools, Nausea, Vomiting, Coffee grounds emesis - Genitourinary Genitourinary: denies: Dysuria, Urgency, Hematuria, Incontinence, Flank pain - Musculoskeletal Musculoskeletal: denies: Muscle pain, Back pain, Muscle aches, Stiffness, Muscle weakness - Integumentary Integumentary: denies: Rash, Pruritis, Dryness, Lumps, Acne - Neurological Neurological: reports: Focal weakness, Pre-existing deficit, Abnormal gait, Incoordination, Slurred speech. denies: Headache, Dizziness, Numbness, Memory problems, Seizures - Psychiatric Psychiatric: denies: Depression, Anxiety, Suicidal, Delusions, Hallucinations, Homicidal - Endocrine Endocrine: denies: Polyuria, Polydypsia, Polyphagia - Hematologic/Lymphatic Hematologic/Lymphatic: denies: Anemia, Bruising, Petechiae, Blood clots, Lymphadenopathy Exam - Vital Signs Vital Signs: Vital Signs x48h Temp Pulse Resp BP Pulse Ox 10/29/19 16:00 37.1 C 70 18 110/97 H 94 10/29/19 15:30 72 11 L 150/73 H 97 10/29/19 15:00 111 H 24 170/87 H 98 10/29/19 14:30 75 21 133/71 H 100 10/29/19 14:23 87 22 154/106 H 99 10/29/19 13:24 36.6 C 70 19 140/60 H 99 - Physical Exam General Appearance: positive: No acute distress, Alert. negative: Lethargic Eyes Bilateral: positive: Normal inspection, PERRL, No lid inflammation ENT: positive: ENT inspection nml, No signs of dehydration. negative: Purulent nasal drainage Neck: positive: Nml inspection, Thyroid nml, No JVD, Trachea midline. negative: Thyromegaly, Lymphadenopathy (R), Lymphadenopathy (L), Stiff neck, Tracheal deviation Respiratory: positive: Chest non-tender, No respiratory distress, Breath sounds nml. negative: Wheezes, Rales, Rhonchi Cardiovascular: positive: Regular rate & rhythm, Systolic murmur, Diastolic murmur. negative: Irregularly irregular, Extrasystoles, Tachycardia, Bradycardia, JVD present Peripheral Pulses: positive: 2+ Abdomen: positive: Non-tender, No organomegaly, Nml bowel sounds, No distention. negative: Tenderness, Guarding, Rebound Back: positive: Nml inspection. negative: CVA tenderness (R), CVA tenderness (L) Skin: positive: Color nml, No rash, Warm, Dry. negative: Cyanosis, Diaphoresis, Pallor Extremities: positive: Non-tender, Nml appearance. negative: Full ROM, Calf tenderness, Ilana's sign/cords Neurologic/Psychiatric: positive: Sensation nml, Weakness, Slurred/abnml speech. negative: Sensory loss, Facial droop, Depressed mood/affect Sepsis Event Note (H) - Evaluation Current Stage of Sepsis: Ruled out Conclusion/Plan - Problem List (1) Stroke Conclusion/Plan: pt has hx of thrombus MCA stroke, had thrombectomy in [facility]. today CTA of head reveals worsen and more narrow arteries in the brain. Consultation was done by ER to [facility]. Recommendation is medical management. continue Plavix, pt is allergy to Aspirin, increase Lipitor to 80mg daily order PT/OT/ST. pt and her report pt can swallow puree diet neuro check social consult for safely d/c planing (2) Diabetes mellitus Conclusion/Plan: pt took Metformin, hold now start SSI, ACHS, and hypoglycemia protocol (3) Hypertension Conclusion/Plan: stable now, will let BP rise. (4) HLD (hyperlipidemia) Conclusion/Plan: pt had significant HLD before, increase Lipitor to 80mg daily check lipid panel (5) Moderate aortic stenosis Conclusion/Plan: pt has hx of heart murmur and aortic stenosis will check ECHO, tele monitor resume home Coreg. - Lab Results Fish Bones: 10/29/19 15:06 10/29/19 15:06 Core Measures - Anticipated LOS I expect patient to be DC'd or transferred within 96 hours.: Yes - DVT/VTE - Prophylaxis VTE/DVT Device ordered at admit?: Yes VTE/DVT Prophylaxis med ordered at admit?: Yes
[2019-10-29] MEDS ORDERED: SODIUM CHLORIDE 0.9% 1,000 ML IV SCH ×2 (17:00→17:59)
[2019-10-29 17:03] LABS: HB2 TOTAL 15.3 g/dL; HEMOGLOBIN A1C 0.73 g/dL; HEMOGLOBIN A1C % 6.5 % (4.6-6.2)
[2019-10-29] MEDS: INSULIN ASPART 300 UNIT/3 ML PEN SUBQ SCH ×2 (18:18→21:25)
[2019-10-29 18:22] LABS: BILIRUBIN,URINE NEGATIVE (NEGATIVE); GLUCOSE, URINE (UA) 250 mg/dL (NEGATIVE); KETONES,URINE (UA) NEGATIVE (NEGATIVE); LEUKOCYTE ESTERASE, URINE NEGATIVE (NEGATIVE); NITRITE,URINE NEGATIVE (NEGATIVE); OCCULT BLOOD,URINE TRACE-INTA (NEGATIVE); PROTEIN,URINE NEGATIVE (NEGATIVE); UROBILINOGEN,URINE 0.2 (NORMAL) E.U./dL (NORMAL)
[2019-10-29 18:26] LABS: CLARITY,URINE CLEAR (CLEAR)
[2019-10-29 18:30] LABS: BACTERIA,URINE None Seen /HPF (None Seen); RBC,URINE 0-5 /HPF (0-5); SQUAMOUS EPITHELIAL CELL,UR RARE Squamous (<= Few)
--- NOTE | 2019-10-29 20:01 | MRI Report ---
Reason: CVA Procedure Date: 10/29/2019 Accession Number: [id number] / [id number] Procedure: MRI - Brain W/O CPT Code: Final Report FULL RESULT: EXAM: MRI BRAIN WITHOUT CONTRAST EXAM DATE: 10/29/2019 06:49 PM. CLINICAL HISTORY: 79-year-old presenting with right-sided deficits and aphasia. Evaluate for intracranial pathology. COMPARISON: ANGIO HEAD W/WO 10/29/2019 1:42 PM MRI BRAIN WO CONTRAST 08/15/2019 9:48 AM HEAD W/O STROKE PROTOCOL 10/29/2019 1:42 PM. TECHNIQUE: Multiplanar, multisequence T1-weighted and fluid-sensitive MR sequences of the brain were performed. Sequences optimized for routine evaluation. Other: None. IV Contrast: None. FINDINGS: Brain Volume: Normal for age. Parenchyma/Dura: There is a moderate to large region of DWI signal hyperintensity involving the left frontal lobe measuring 30 x 48 mm (series 505, image 128) with associated ADC signal hypointensity (series 503, image 132) representing restricted diffusion. Associated T2/FLAIR signal hyperintensity. There is evidence of encephalomalacia and gliosis involving the left basal ganglia and region of infarct seen on MR brain 08/15/2019. No acute parenchymal hemorrhage, mass, or midline shift. There are old chronic lacunar infarcts seen involving the left putamen, left external capsule, left centrum semiovale, right frontal ayala radiata, posterior left frontal lobe, right parietal ayala radiata, and bilateral cerebelli. There is mild to moderate bilateral areas of T2/FLAIR signal hyperintensity seen. There is punctate foci susceptibility artifact seen within the left globus pallidus that may represent mineralization. Previously seen foci of magnetic susceptibility artifact seen on MR brain 08/15/2019 and not well evaluated on the current study likely due to use of SWI sequence on prior study. Ventricles/Cisterns: No hydrocephalus. No abnormal extra-axial fluid collection or hemorrhage. Orbits: Changes of bilateral lens replacement. Sella Turcica: The pituitary gland, cavernous sinuses, suprasellar cistern and optic chiasm are unremarkable. IAC: Symmetric and unremarkable. Vasculature: Normal signal flow void is seen in the major arterial structures at the skull base. Sinuses: Small right maxillary mucosal retention cyst versus polyp with minimal mucosal thickening of the maxillary sinuses. There appear to be postsurgical changes of prior maxillary antrostomy and uncinectomy as well as bilateral ethmoidectomy. There is mild mucosal thickening of the visualized ethmoid air cells. There is mild mucosal thickening of the left sphenoid sinus. Mastoid air cells and middle ear cavities appear clear. Bones: No focal pathologic appearing marrow signal changes. Other: None. IMPRESSION: 1. Motion artifact technically limits evaluation. 2. When accounting for technical limitations, there is a large region of restricted diffusion involving the left frontal lobe measuring at least 30 x 48 mm that likely represents acute to early subacute infarct. No definite evidence of hemorrhagic transformation. 3. There are old chronic lacunar infarcts seen, as detailed above. A few of the lacunar infarcts within the left basal ganglia are in regions of infarct seen on MR brain 08/15/2019. There are additional white matter changes seen that appear similar to prior study and while nonspecific, may represent sequela of chronic small vessel ischemic disease. RADIA The call report notification system was initiated by Dr. Tre Faye at 07:59 PM on 10/29/2019. The above call report findings were discussed with Dr Dubois by Dr. Tre Faye at 08:04 PM on 10/29/2019.
[2019-10-29] MEDS ORDERED: ATORVASTATIN 40 MG TABLET PO SCH (21:00)
[2019-10-29] MEDS: carvediloL 12.5 MG TABLET PO SCH (21:25)
[2019-10-29] MEDS: FAMOTIDINE 20 MG TABLET PO SCH (21:25)
[2019-10-30 05:02] LABS: BASOPHILS % (AUTO) 0.2 %; EOSINOPHILS # (AUTO) 0.1 10^3/uL (0.0-0.7); EOSINOPHILS % (AUTO) 2.6 %; HGB - HEMOGLOBIN 11.8 g/dL (12.0-16.0); LYMPHOCYTES # (AUTO) 1.5 10^3/uL (1.5-3.5); LYMPHOCYTES % (AUTO) 30.3 %; MEAN CORPUSCULAR HEMOGLOBIN 29.5 pg (27.0-31.0); MEAN CORPUSCULAR HGB CONC 33.2 g/dL (32.0-36.0); MEAN CORPUSCULAR VOLUME 88.8 fL (81.0-99.0); MEAN PLATELET VOLUME 10.2 fL (7.9-10.8); MONOCYTES # (AUTO) 0.4 10^3/uL (0.0-1.0); MONOCYTES % (AUTO) 8.6 %; NEUTROPHILS % (AUTO) 58.1 %; PLT - PLATELET COUNT 142 10^3/uL (130-450); RED CELL DISTRIBUTION WIDTH 13.1 % (12.0-15.0); WHITE BLOOD COUNT 5.1 x10^3/uL (4.8-10.8)
[2019-10-30 05:18] LABS: ALBUMIN 3.7 g/dL (3.2-5.5); ALBUMIN/GLOBULIN RATIO 1.6 (1.0-2.2); ALKALINE PHOSPHATASE 41 IU/L (42-121); ALT ALANINE AMINOTRANSFERASE 17 IU/L (10-60); AST ASPARTATE AMINOTRANSFERASE 23 IU/L (10-42); BILIRUBIN,TOTAL 0.9 mg/dL (0.2-1.0); BUN - BLOOD UREA NITROGEN 12 mg/dL (6-20); CALCIUM 8.1 mg/dL (8.5-10.3); CARBON DIOXIDE - CO2 25 mmol/L (21-32); CHLORIDE 110 mmol/L (101-111); CHOL/HDL RATIO 2.7 (<4.4); CHOLESTEROL 105 mg/dL; CREATININE 0.7 mg/dL (0.4-1.0); GLUCOSE 126 mg/dL (70-100); HDL CHOLESTEROL 39 mg/dL; LDL CHOLESTEROL,CALCULATED 43 mg/dL; LDL/HDL RATIO 1.1 (<4.4); MAGNESIUM 1.9 mg/dL (1.7-2.8); PHOSPHORUS 3.2 mg/dL (2.5-4.6); SODIUM 141 mmol/L (135-145); VLDL CHOLESTEROL 23 mg/dL
[2019-10-30] MEDS: SODIUM CHLORIDE FLUSH 0.9% 10 ML SYRINGE IVP SCH ×2 (05:59→08:15)
[2019-10-30] MEDS: carvediloL 12.5 MG TABLET PO SCH (07:58)
[2019-10-30] MEDS: FAMOTIDINE 20 MG TABLET PO SCH (07:58)
[2019-10-30] MEDS: INSULIN ASPART 300 UNIT/3 ML PEN SUBQ SCH ×2 (07:59→12:43)
[2019-10-30] MEDS ORDERED: POTASSIUM CHLOR 10 MEQ/100 ML 10 MEQ/100 ML BAG IV SCH (08:00)
[2019-10-30] MEDS ORDERED: POTASSIUM CHLORIDE 10 MEQ CAPSULE PO ONE (08:00)
[2019-10-30] MEDS ORDERED: ENOXAPARIN 40 MG/0.4 ML SYRINGE SUBQ SCH (09:00)
[2019-10-30] MEDS ORDERED: CLOPIDOGREL 75 MG TABLET PO SCH (09:00)
[2019-10-30] MEDS ORDERED: ESCITALOPRAM 10 MG TABLET PO SCH (09:00)
[2019-10-30 11:39] VITALS: BP 159/68
[2019-10-30] MEDS ORDERED: PANTOPRAZOLE 40 MG TABLET PO SCH (12:00)
[2019-10-30] MEDS ORDERED: ASPIRIN CHEW 81 MG TABLET PO SCH (12:00)
--- NOTE | 2019-10-30 13:34 | Discharge Plan ---
Discharge Plan Problem Reviewed?: Yes Disposition: Home Health Service Condition: Poor Prescriptions: Aspirin Chewable [[facility] Aspirin] 81 mg PO DAILY #15 tablet Atorvastatin Calcium 80 mg PO QPM #20 tablet Pantoprazole Sodium [Protonix] 20 mg PO DAILY #15 tablet. Diet: Diabetic Activity Restrictions: Activity as Tolerated Shower Restrictions: No (fall precaution, caregiver closely monitor) Instruction Topics: Atherosclerosis Aspirin, Pantoprazole tablets, Atorvastatin tablets, Stroke Sx, Stroke Ischemic, Dysarthria Health Concerns: stroke Plan of Treatment: you have a great recovery from your stroke. PT/OT evaluated and treated for you. you are recommended to have home with home health PT/OT/ST. Aspirin with PPI, and increased dosage of statin are prescribed for you. Care Goals: stabilization and improvement of your medical conditions Assessment: discussed in detail with you and your about the care plan, you and your understood and agreed. Additional Instructions or Follow Up instructions: you may followup your PCP in one week, followup neurologist as out-pt. PT/OT/ST are arranged for you. Should your symptoms return or worsen, you may present ER or call 911 for help. Follow-Up Care: Home Health - PT, Home Health - OT, Home Health - ST No Smoking: If you smoke, Please STOP! Call for help. Follow-up with: Vania Gómez MD [Primary Care Provider] -
--- NOTE | 2019-10-30 13:54 | DISCHARGE SUMMARY ---
Discharge Summary Admit Date: 10/29/19 Discharge Date: 10/30/19 Discharging Provider: Jerod Elizondo Primary Care Provider: Dr. Gómez Condition at Discharge: Poor Discharge Disposition: Home Health Service Discharge Facility Name: home - DIAGNOSES Admission Diagnoses: (1) Stroke (2) Diabetes mellitus (3) Hypertension (4) HLD (hyperlipidemia) (5) Moderate aortic stenosis Discharge Diagnoses with Status of Each Condition: (1) Stroke pt had a great recovery from her stroke. pt can independently walk to bathroom and dressing herself. all staff, PT/OT saw pt's great recovery. PT/OT evaluated and treated pt, and recommended pt can be d/c today and benefit from home health PT/OT/ST. pt did not have dysphagia, she still present mild slurred speech. Pt will be followup ST therapy. pt is advised to followup neurologist as out-pt. pt has no allergy for aspirin. pt is prescribed Aspirin, low dosage of PPI, and increased dosage of Lipitor. (2) Diabetes mellitus stable (3) Hypertension stable, resume home BP meds (4) HLD (hyperlipidemia) stable (5) Moderate aortic stenosis stable, resume home meds, advise pt followup medical consultant as out-pt - HPI History of Present Illness: This is a 79-year-old woman with a PMH significant for recent stroke with right side weakness in August, HTN, DM2, HLD, migraines headache, RA, who present ER complain of aphasia and worsening right side weakness. At Aug. pt had stroke, pt was transferred to [facility] for high level of care. pt had a thrombectomy was done. pt then was discharged with home health PT/OT/ST. pt's report today around 10am, when pt saw ST, pt was found to have worsening speech. also pt could not walk as she can do before. CTA of head reveals "the previous study of 08/14/2019 demonstrated occlusion of the mid M2 branch at the left MCA trifurcation, roughly 6.5 mm distal to its origin from intraluminal thrombus. This branch has now gone on to cclude to its origin. However, the other 2 left MCA branches remain patent. 2. There is severe narrowing t the o rigin of the A1 segment for the right anterior cerebral artery. This appears to progress. 3. Again demonstrated are multifocal stenoses in the M1 segment for the right MCA, most prominent near the junction between the proximal and middle thirds were degree of stenosis represents about 60% diameter narrowing. 4. Again demonstrated is severe stenosis at the origin of the inferior M2 branch at right MCA trifurcation, essentially unchanged. 5. 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 6. Stable appearance of known, previously emonstrated, basilar apex aneurysm" -from radiologist's review. ER provider consulted [facility], they recommended pt for medical management. pt denies fever, chill, cough, chest pain, shortness of breath, headache. pt is admitted for stroke medical management. discussed with pt and pt's for goal of care, pt and her request DNR/DNI. - HOSPITAL COURSE Hospital Course: pt was admitted for stroke, presented dysarthria, right side weakness. MRI revea ls pt has large left frontal lobe infarct stroke without definite hemorrhagic transformation. ECHO reveals preserved EF with stable moderate aortic stenosis. Pt was consulted by [facility] neurologist for Pt's CTA of brain and neck image study. No surgery intervention was recommended at this time. after pt was treated in hospital, pt had a great recovery. PT/OT evaluated and treated pt, and recommended pt to have home health, pt can have benefit from home health PT/OT/ST. pt did not have dysphagia, ph has mild slurred speech. pt is advised to followup neurologist. The detail hospital course is as the following. (1) Stroke pt had a great recovery from her stroke. pt can independently walk to bathroom and dressing herself. all staff, PT/OT saw pt's great recovery. PT/OT evaluated and treated pt, and recommended pt can be d/c today and benefit from home health PT/OT/ST. pt did not have dysphagia, she still present mild slurred speech. Pt will be followup ST therapy. pt is advised to followup neurologist as out-pt. pt has no allergy for aspirin. pt is prescribed Aspirin, low dosage of PPI, and increased dosage of Lipitor. (2) Diabetes mellitus stable (3) Hypertension stable, resume home BP meds (4) HLD (hyperlipidemia) stable (5) Moderate aortic stenosis stable, resume home meds, advise pt followup medical consultant as out-pt - ALLERGIES Allergies/Adverse Reactions: Allergies Allergy/AdvReac Type Severity Reaction Status Date / Time lactose AdvReac Intermediate Nausea Verified 10/29/19 13:24 - MEDICATIONS Home Medications: Ambulatory Orders Medication Instructions Recorded Confirmed Acetaminophen with Codeine 1 tab PO Q4H PRN 08/14/19 10/29/19 [Acetaminophen-Cod #2 Tablet] NIFEdipine [Nifedipine ER] 30 mg PO DAILY 08/14/19 10/29/19 ALPRAZolam [Alprazolam] 0.5 mg PO BID PRN 10/29/19 10/29/19 Clopidogrel [Plavix] 75 mg PO DAILY 10/29/19 10/29/19 Escitalopram Oxalate 5 mg PO DAILY 10/29/19 10/29/19 Metformin HCl 500 mg PO BIDWM 10/29/19 10/29/19 carvediloL [Carvedilol] 12.5 mg PO BID 10/29/19 10/29/19 Aspirin Chewable [[facility] 81 mg PO DAILY #15 tablet 10/30/19 Aspirin] Atorvastatin Calcium 80 mg PO QPM #20 tablet 10/30/19 Pantoprazole Sodium [Protonix] 20 mg PO DAILY #15 tablet. 10/30/19 - PHYSICAL EXAM AT DISCHARGE General Appearance: positive: No acute distress, Alert. negative: Lethargic Eyes Bilateral: positive: Normal inspection, PERRL, EOMI, No lid inflammation ENT: positive: ENT inspection nml, Pharynx nml, No signs of dehydration. negative: Purulent nasal drainage Neck: positive: Nml inspection, Thyroid nml, No JVD, Trachea midline. negative: Thyromegaly, Stiff neck, Tracheal deviation Respiratory: positive: Chest non-tender, No respiratory distress, Breath sounds nml. negative: Wheezes, Rales, Rhonchi Cardiovascular: positive: Regular rate & rhythm, No murmur, No gallop. negative: Irregularly irregular, Tachycardia, Bradycardia, JVD present, Systolic murmur, Diastolic murmur Peripheral Pulses: positive: 2+ Abdomen: positive: Non-tender, No organomegaly, Nml bowel sounds, No distention. negative: Tenderness, Guarding, Rebound Back: positive: Nml inspection. negative: CVA tenderness (R), CVA tenderness (L) Skin: positive: Color nml, No rash, Warm, Dry. negative: Cyanosis, Diaphoresis, Pallor Extremities: positive: Non-tender, Full ROM (right arm with reduced ROM), Nml appearance. negative: Calf tenderness, Ilana's sign/cords Neurologic/Psychiatric: positive: Oriented x3, Sensation nml, Mood/affect nml, Weakness (mild weakness on right arm), Slurred/abnml speech (mild slurred speech.). negative: Facial droop - LABS Result Diagrams: 10/30/19 04:40 10/30/19 04:40 - SEPSIS Current Stage of Sepsis: Ruled out - FOLLOW UP Follow Up: you have a great recovery from your stroke. PT/OT evaluated and treated for you. you are recommended to have home with home health PT/OT/ST. Aspirin with PPI, and increased dosage of statin are prescribed for you. you may followup your PCP in one week, followup neurologist as out-pt. PT/OT/ST are arranged for you. Should your symptoms return or worsen, you may present ER or call 911 for help. - TIME SPENT Time Spent in Discharge (Minutes): 30
== END 2019-10-30 14:37 | disposition home health service (06) | DRG 65 ==
LOC: ED 13:08 → MS2 16:22
PROVIDERS: ADMIT Nurse Practitioner Gerontology; ATTEND Nurse Practitioner Gerontology
DX: I63.312 Cerebral infarction due to thrombosis of left middle cerebral artery (principal); G81.91 Hemiplegia, unspecified affecting right dominant side; R47.1 Dysarthria and anarthria; R47.01 Aphasia; I10 Essential (primary) hypertension; R29.706 NIHSS score 6; E11.9 Type 2 diabetes mellitus without complications; I35.0 Nonrheumatic aortic (valve) stenosis; E78.5 Hyperlipidemia, unspecified; R47.81 Slurred speech; I69.320 Aphasia following cerebral infarction; Z66 Do not resuscitate; I67.1 Cerebral aneurysm, nonruptured; R45.1 Restlessness and agitation; Z98.890 Other specified postprocedural states; Z79.84 Long term (current) use of oral hypoglycemic drugs; Z82.3 Family history of stroke; Z79.02 Long term (current) use of antithrombotics/antiplatelets; Z79.899 Other long term (current) drug therapy
CPT/HCPCS: 36415; 70496; 70498; 70551; 80053; 80061; 81001; 83036; 83690; 83735; 84100; 85025; 85610; 93306; 96372; 96374; 97161; 97166; 99281; 99285; A9270; J1650; J2060; Q9967; 70450; 83721; 87086

== ENCOUNTER 2020-01-05 12:56 | Outpatient (CLI) | payer MEDICARE | END 2020-01-05 12:57 | disposition home or self-care (01) | LOC: DI 12:56 | PROVIDERS: ATTEND Internal Medicine | DX: Z12.31 Encounter for screening mammogram for malignant neoplasm of breast (principal); M89.9 Disorder of bone, unspecified ==